=== PATIENT | male | born 1935 | race Caucasian/White ===

== ENCOUNTER 2018-07-24 10:00 | Inpatient (IN) | payer MEDICARE, OTHER ==
[2018-07-24 10:53] LABS: BASO % 0.3 % (0.0-1.0); EOS # 0.1 10^3/uL (0.0-0.50); EOS % 1.5 % (0.0-3.0); HEMATOCRIT 40.9 % (42.0-52.0); HEMOGLOBIN 13.8 g/dl (13.5-17.5); IMMATURE GRANULOCYTE % 0.3 % (0-3.0); LYMPH # 0.5 10^3/uL (1.5-4.5); LYMPH % 7.5 % (24.0-44.0); MEAN CORPUSCULAR HEMOGLOBIN 29.6 pg (27.0-33.0); MEAN CORPUSCULAR HGB CONC 33.7 g/dl (32.0-36.5); MEAN CORPUSCULAR VOLUME 87.8 fl (80.0-96.0); MONO # 0.5 10^3/uL (0.0-0.8); MONO % 7.8 % (0.0-5.0); NEUTROPHILS # 5.4 10^3/uL (1.8-7.7); NEUTROPHILS % 82.6 % (36.0-66.0); PLATELET COUNT, AUTOMATED 194 10^3/uL (150-450); RED BLOOD COUNT 4.66 10^6/uL (4.30-6.10); RED CELL DISTRIBUTION WIDTH 12.3 % (11.5-14.5); WHITE BLOOD COUNT 6.5 10^3/uL (4.0-10.0)
[2018-07-24] MEDS ORDERED: ISOVUE-370 76% 100ML VIAL (Q9967) As Ordered (11:03)
[2018-07-24 11:04] LABS: INR 1.03; PROTHROMBIN TIME 13.6 SECONDS (12.1-14.4)
[2018-07-24 11:06] LABS: ANION GAP 7 MEQ/L (8-16); BLOOD UREA NITROGEN 14 MG/DL (7-18); CALCIUM LEVEL 8.5 MG/DL (8.8-10.2); CARBON DIOXIDE LEVEL 28 MEQ/L (21-32); CHLORIDE LEVEL 105 MEQ/L (98-107); CPK CREATINE PHOSPHOKINASE 68 U/L (39-308); CREATININE FOR GFR 0.89 MG/DL (0.70-1.30); GLOMERULAR FILTRATION RATE > 60.0 (>35); GLUCOSE, FASTING 113 MG/DL (70-100); SODIUM LEVEL 140 MEQ/L (136-145); TROPONIN I < 0.02 NG/ML (< 0.10)
[2018-07-24 11:07] LABS: CK-MB VALUE MASS 1.1 NG/ML (<3.6); MB/CK RELATIVE INDEX 1.61 (< OR =4)
[2018-07-24] MEDS ORDERED: BISACODYL 5 MG TAB PO (13:00)
[2018-07-24] MEDS ORDERED: ONDANSETRON 4MG/2ML VIAL (J2405) IV (13:00)
[2018-07-24 14:22] LABS: LDH LACTATE DEHYDROGENASE 176 U/L (87-241)
[2018-07-24] MEDS: LEVOTHYROXINE 50MCG TABLET (0.05MG) PO (14:57)
[2018-07-24] MEDS: POTASSIUM CHLORIDE 10 MEQ SR TABLET PO (14:58)
[2018-07-24] MEDS: FUROSEMIDE 40 MG TAB PO (14:58)
[2018-07-24] MEDS ORDERED: METOPROLOL TART 50 MG TAB As Ordered (17:55)
[2018-07-24] MEDS ORDERED: METOPROLOL SUCC (TopROL XL) 100MG *XL* TAB As Ordered (17:57)
[2018-07-24] MEDS ORDERED: METOPROLOL TARTRATE 100 MG TAB As Ordered (17:58)
[2018-07-24] MEDS: METOPROLOL TARTRATE 100 MG TAB PO (17:59)
[2018-07-24 18:42] LABS: KETONE, URINE AUTO RFX NEGATIVE (NEGATIVE); LEUKOCYTE ESTERASE UR AUTO RFX NEGATIVE (NEGATIVE); MUCUS, URINE RFX SMALL (NEGATIVE); NITRITE, URINE AUTO RFX NEGATIVE (NEGATIVE); RBC, URINE AUTO RFX 0 /HPF (0-3); SPECIFIC GRAVITY UR AUTO RFX 1.013 (1.002-1.035); SQUAM EPITHELIAL CELL UR AURFX 0 /HPF (0-6); WBC, URINE AUTO RFX 1 /HPF (0-3)
[2018-07-24] MEDS: ARIPiprazole 2 MG TAB PO (20:00)
[2018-07-24] MEDS: TERAZOSIN 5 MG CAP PO (20:00)
[2018-07-24] MEDS: ATORVASTATIN 20 MG TAB PO (20:00)
[2018-07-25 05:10] LABS: HEMATOCRIT 36.4 % (42.0-52.0); HEMOGLOBIN 12.2 g/dl (13.5-17.5); MEAN CORPUSCULAR HEMOGLOBIN 29.1 pg (27.0-33.0); MEAN CORPUSCULAR HGB CONC 33.5 g/dl (32.0-36.5); MEAN CORPUSCULAR VOLUME 86.9 fl (80.0-96.0); PLATELET COUNT, AUTOMATED 189 10^3/uL (150-450); RED BLOOD COUNT 4.19 10^6/uL (4.30-6.10); RED CELL DISTRIBUTION WIDTH 12.1 % (11.5-14.5)
[2018-07-25 05:39] LABS: ANION GAP 5 MEQ/L (8-16); BLOOD UREA NITROGEN 14 MG/DL (7-18); CALCIUM LEVEL 8.1 MG/DL (8.8-10.2); CARBON DIOXIDE LEVEL 28 MEQ/L (21-32); CHLORIDE LEVEL 106 MEQ/L (98-107); CREATININE FOR GFR 0.74 MG/DL (0.70-1.30); GLOMERULAR FILTRATION RATE > 60.0 (>35); GLUCOSE, FASTING 100 MG/DL (70-100); SODIUM LEVEL 139 MEQ/L (136-145)
[2018-07-25] MEDS: LEVOTHYROXINE 50MCG TABLET (0.05MG) PO (06:29)
[2018-07-25] MEDS: amLODIPine 5 MG TAB PO (08:42)
[2018-07-25] MEDS: METOPROLOL TARTRATE 100 MG TAB PO ×2 (08:42→20:15)
[2018-07-25] MEDS: DUTASTERIDE 0.5 MG CAP (AVODART) PO (08:43)
[2018-07-25] MEDS: OMEPRAZOLE 20 MG CAP PO (08:43)
[2018-07-25] MEDS: LISINOPRIL 40 MG TAB PO (08:43)
[2018-07-25] MEDS: FUROSEMIDE 40 MG TAB PO (08:43)
[2018-07-25] MEDS: POTASSIUM CHLORIDE 10 MEQ SR TABLET PO (08:44)
[2018-07-25 11:53] LABS: BEDSIDE GLUCOSE 127 MG/DL (83-110)
[2018-07-25] MEDS: ARIPiprazole 2 MG TAB PO (16:09)
[2018-07-25] MEDS: ATORVASTATIN 20 MG TAB PO (20:15)
[2018-07-25] MEDS: ACETAMINOPHEN TAB 650MG DOSE (2X325MG) PO (20:16)
[2018-07-25] MEDS: TERAZOSIN 5 MG CAP PO (20:18)
[2018-07-26 05:40] LABS: HEMATOCRIT 36.7 % (42.0-52.0); HEMOGLOBIN 12.3 g/dl (13.5-17.5); MEAN CORPUSCULAR HEMOGLOBIN 29.1 pg (27.0-33.0); MEAN CORPUSCULAR HGB CONC 33.5 g/dl (32.0-36.5); MEAN CORPUSCULAR VOLUME 86.8 fl (80.0-96.0); PLATELET COUNT, AUTOMATED 186 10^3/uL (150-450); RED BLOOD COUNT 4.23 10^6/uL (4.30-6.10); RED CELL DISTRIBUTION WIDTH 12.1 % (11.5-14.5); WHITE BLOOD COUNT 5.8 10^3/uL (4.0-10.0)
[2018-07-26 05:56] LABS: ANION GAP 8 MEQ/L (8-16); BLOOD UREA NITROGEN 14 MG/DL (7-18); CALCIUM LEVEL 7.9 MG/DL (8.8-10.2); CARBON DIOXIDE LEVEL 26 MEQ/L (21-32); CHLORIDE LEVEL 105 MEQ/L (98-107); CREATININE FOR GFR 0.65 MG/DL (0.70-1.30); GLOMERULAR FILTRATION RATE > 60.0 (>35); GLUCOSE, FASTING 98 MG/DL (70-100); POTASSIUM SERUM 3.5 MEQ/L (3.5-5.1); SODIUM LEVEL 139 MEQ/L (136-145)
[2018-07-26] MEDS: LEVOTHYROXINE 50MCG TABLET (0.05MG) PO (06:24)
[2018-07-26] MEDS: ARIPiprazole 2 MG TAB PO (08:30)
[2018-07-26] MEDS: DUTASTERIDE 0.5 MG CAP (AVODART) PO (08:30)
[2018-07-26] MEDS: LISINOPRIL 40 MG TAB PO (08:30)
[2018-07-26] MEDS: METOPROLOL TARTRATE 100 MG TAB PO ×2 (08:31→20:36)
[2018-07-26] MEDS: amLODIPine 5 MG TAB PO ×2 (08:31→11:54)
[2018-07-26] MEDS: FUROSEMIDE 40 MG TAB PO (08:31)
[2018-07-26] MEDS: POTASSIUM CHLORIDE 10 MEQ SR TABLET PO (08:31)
[2018-07-26 14:53] LABS: PH BODY FLUID 7.749 UNITS (NOT ESTABLISHED); SOURCE, BODY FLUID pH PLEURAL
[2018-07-26 15:20] LABS: APPEARANCE, BODY FLUID CLEAR (CLEAR); PLEURAL FL COLOR PALE YELLOW (COLORLESS); RBC BODY FLUID < 2 10^3/uL (<2); SOURCE, BODY FLUID PLEURAL; WBC BODY FLUID 753 /uL (0-10)
[2018-07-26 15:21] LABS: BF DIFF IF INDICATED? NO (NO)
[2018-07-26 15:23] LABS: AMYLASE, BODY FLUID 12 U/L (NOT ESTABLISHED); CHOLESTEROL, BODY FLUID < 50 MG/DL (NOT ESTABLISHED); LDH, BODY FLUID 90 U/L (NOT ESTABLISHED); SOURCE, BODY FLUID ALBUMIN PLEURAL; SOURCE, BODY FLUID AMYLASE PLEURAL; SOURCE, BODY FLUID CHOL PLEURAL; SOURCE, BODY FLUID GLUCOSE PLEURAL; SOURCE, BODY FLUID LDH PLEURAL; SOURCE, BODY FLUID TOT PROTEIN PLEURAL; SOURCE, BODY FLUID TRIG PLEURAL; TOTAL PROTEIN, BODY FLUID 3.5 G/DL (NOT ESTABLISHED); TRIGLYCERIDE, BODY FLUID 8 MG/DL (NOT ESTABLISHED)
[2018-07-26] MEDS: ATORVASTATIN 20 MG TAB PO (20:34)
[2018-07-26] MEDS: TERAZOSIN 5 MG CAP PO (20:35)
[2018-07-26] MEDS: ACETAMINOPHEN TAB 650MG DOSE (2X325MG) PO (20:36)
[2018-07-26] MEDS: QUEtiapine FUMARATE 25 MG TAB PO (20:36)
[2018-07-27 05:07] LABS: HEMATOCRIT 36.5 % (42.0-52.0); HEMOGLOBIN 12.4 g/dl (13.5-17.5); MEAN CORPUSCULAR HEMOGLOBIN 28.9 pg (27.0-33.0); MEAN CORPUSCULAR VOLUME 85.1 fl (80.0-96.0); PLATELET COUNT, AUTOMATED 185 10^3/uL (150-450); RED BLOOD COUNT 4.29 10^6/uL (4.30-6.10); RED CELL DISTRIBUTION WIDTH 12.2 % (11.5-14.5); WHITE BLOOD COUNT 6.1 10^3/uL (4.0-10.0)
[2018-07-27 05:22] LABS: ANION GAP 9 MEQ/L (8-16); BLOOD UREA NITROGEN 14 MG/DL (7-18); CALCIUM LEVEL 8.3 MG/DL (8.8-10.2); CARBON DIOXIDE LEVEL 26 MEQ/L (21-32); CHLORIDE LEVEL 105 MEQ/L (98-107); CREATININE FOR GFR 0.64 MG/DL (0.70-1.30); GLOMERULAR FILTRATION RATE > 60.0 (>35); GLUCOSE, FASTING 82 MG/DL (70-100); POTASSIUM SERUM 3.5 MEQ/L (3.5-5.1); SODIUM LEVEL 140 MEQ/L (136-145)
[2018-07-27] MEDS: LEVOTHYROXINE 50MCG TABLET (0.05MG) PO (06:32)
[2018-07-27] MEDS: ARIPiprazole 2 MG TAB PO (08:44)
[2018-07-27] MEDS: FUROSEMIDE 40 MG TAB PO (08:44)
[2018-07-27] MEDS: DUTASTERIDE 0.5 MG CAP (AVODART) PO (08:44)
[2018-07-27] MEDS: LISINOPRIL 40 MG TAB PO (08:45)
[2018-07-27] MEDS: amLODIPine 10 MG TAB PO (08:45)
[2018-07-27] MEDS: METOPROLOL TARTRATE 100 MG TAB PO ×2 (08:45→21:41)
[2018-07-27] MEDS: POTASSIUM CHLORIDE 10 MEQ SR TABLET PO ×2 (08:45→11:07)
[2018-07-27] MEDS: OMEPRAZOLE 20 MG CAP PO (08:45)
[2018-07-27 09:05] LABS: ALBUMIN 2.8 GM/DL (3.2-5.2); ALKALINE PHOSPHATASE 106 U/L (45-117); ALT/SGPT 25 U/L (12-78); AST/SGOT 20 U/L (7-37); BILIRUBIN,DIRECT 0.3 MG/DL (0.0-0.2); BILIRUBIN,TOTAL 0.8 MG/DL (0.2-1.0); LDH LACTATE DEHYDROGENASE 190 U/L (87-241); TOTAL PROTEIN 5.9 GM/DL (6.4-8.2)
[2018-07-27 09:45] LABS: MAGNESIUM LEVEL 2.2 MG/DL (1.8-2.4)
[2018-07-27] MEDS: DIGOXIN 0.25 MG TAB PO (11:07)
[2018-07-27] MEDS ORDERED: SLF 3 ML SYR IV (12:30)
[2018-07-27] MEDS: SLF 3 ML SYR IV ×2 (14:00→21:40)
[2018-07-27 15:15] LABS: CPK CREATINE PHOSPHOKINASE 60 U/L (39-308); TROPONIN I < 0.02 NG/ML (< 0.10)
[2018-07-27 15:16] LABS: CK-MB VALUE MASS 1.1 NG/ML (<3.6); MB/CK RELATIVE INDEX 1.83 (< OR =4)
[2018-07-27 16:26] LABS: CK-MB VALUE MASS 1.1 NG/ML (<3.6); CPK CREATINE PHOSPHOKINASE 63 U/L (39-308); MB/CK RELATIVE INDEX 1.74 (< OR =4); TROPONIN I 0.02 NG/ML (< 0.10)
[2018-07-27 16:39] LABS: ANION GAP 8 MEQ/L (8-16); BLOOD UREA NITROGEN 16 MG/DL (7-18); CALCIUM LEVEL 8.6 MG/DL (8.8-10.2); CARBON DIOXIDE LEVEL 26 MEQ/L (21-32); CHLORIDE LEVEL 105 MEQ/L (98-107); CREATININE FOR GFR 0.96 MG/DL (0.70-1.30); GLOMERULAR FILTRATION RATE > 60.0 (>35); GLUCOSE, FASTING 88 MG/DL (70-100); MAGNESIUM LEVEL 2.2 MG/DL (1.8-2.4); POTASSIUM SERUM 4.3 MEQ/L (3.5-5.1); SODIUM LEVEL 139 MEQ/L (136-145)
[2018-07-27 21:37] LABS: CPK CREATINE PHOSPHOKINASE 53 U/L (39-308); MB/CK RELATIVE INDEX 1.88 (< OR =4); TROPONIN I < 0.02 NG/ML (< 0.10)
[2018-07-27] MEDS: TERAZOSIN 5 MG CAP PO (21:40)
[2018-07-27] MEDS: ATORVASTATIN 20 MG TAB PO (21:41)
[2018-07-27] MEDS: QUEtiapine FUMARATE 25 MG TAB PO (21:41)
[2018-07-28] MEDS: SLF 3 ML SYR IV ×2 (05:41→14:42)
[2018-07-28] MEDS: LEVOTHYROXINE 50MCG TABLET (0.05MG) PO (05:41)
[2018-07-28 05:46] LABS: HEMATOCRIT 39.2 % (42.0-52.0); HEMOGLOBIN 13.2 g/dl (13.5-17.5); MEAN CORPUSCULAR HEMOGLOBIN 29.2 pg (27.0-33.0); MEAN CORPUSCULAR HGB CONC 33.7 g/dl (32.0-36.5); MEAN CORPUSCULAR VOLUME 86.7 fl (80.0-96.0); PLATELET COUNT, AUTOMATED 176 10^3/uL (150-450); RED BLOOD COUNT 4.52 10^6/uL (4.30-6.10); RED CELL DISTRIBUTION WIDTH 12.1 % (11.5-14.5); WHITE BLOOD COUNT 6.7 10^3/uL (4.0-10.0)
[2018-07-28 06:06] LABS: ANION GAP 9 MEQ/L (8-16); BLOOD UREA NITROGEN 17 MG/DL (7-18); CALCIUM LEVEL 8.7 MG/DL (8.8-10.2); CARBON DIOXIDE LEVEL 26 MEQ/L (21-32); CHLORIDE LEVEL 107 MEQ/L (98-107); CREATININE FOR GFR 0.73 MG/DL (0.70-1.30); GLOMERULAR FILTRATION RATE > 60.0 (>35); GLUCOSE, FASTING 88 MG/DL (70-100); POTASSIUM SERUM 4.1 MEQ/L (3.5-5.1); SODIUM LEVEL 142 MEQ/L (136-145)
[2018-07-28] MEDS: DUTASTERIDE 0.5 MG CAP (AVODART) PO (08:28)
[2018-07-28] MEDS: LISINOPRIL 40 MG TAB PO (08:29)
[2018-07-28] MEDS: ARIPiprazole 2 MG TAB PO (08:29)
[2018-07-28] MEDS: POTASSIUM CHLORIDE 10 MEQ SR TABLET PO (08:29)
[2018-07-28] MEDS: amLODIPine 10 MG TAB PO (08:29)
[2018-07-28] MEDS: FUROSEMIDE 40 MG TAB PO (08:30)
[2018-07-28] MEDS: METOPROLOL TARTRATE 100 MG TAB PO (08:30)
[2018-07-28] MEDS: DIGOXIN 0.25 MG TAB PO (08:30)
[2018-07-28] MEDS ORDERED: QUEtiapine FUMARATE 25 MG TAB PO (21:00)
== END 2018-07-28 19:47 | disposition short-term general hospital (02) | DRG 86 ==
LOC: M PCU 07-26 13:45 → M ED 10:00 → M ED INP 12:56 → M ICU 14:06
PROVIDERS: Hospitalist
PROC: 0W9B3ZZ Drainage of Left Pleural Cavity, Percutaneous Approach (ICD-10-PCS; principal; 2018-07-26)
DX: S06.5X0A Traumatic subdural hemorrhage without loss of consciousness, initial encounter (principal); J90 Pleural effusion, not elsewhere classified; R47.01 Aphasia; F03.90 Unspecified dementia, unspecified severity, without behavioral disturbance, psychotic disturbance, mood disturbance, and anxiety; I10 Essential (primary) hypertension; E78.5 Hyperlipidemia, unspecified; N40.0 Benign prostatic hyperplasia without lower urinary tract symptoms; E03.9 Hypothyroidism, unspecified; Y92.009 Unspecified place in unspecified non-institutional (private) residence as the place of occurrence of the external cause; R27.8 Other lack of coordination; R41.82 Altered mental status, unspecified; K21.9 Gastro-esophageal reflux disease without esophagitis; Z79.82 Long term (current) use of aspirin; Z79.899 Other long term (current) drug therapy; I48.91 Unspecified atrial fibrillation; W19.XXXA Unspecified fall, initial encounter; R41.0 Disorientation, unspecified

== ENCOUNTER 2019-08-10 05:00 | Emergency (ER) | payer MEDICARE, OTHER ==
[~2019-08-10] VITALS: Ht 175.3 cm; Wt 61.4 kg
[~2019-08-10 05:00] MED LIST: AMLO10TA5 PO; AMLO2.5T3 PO; ASPI81TA85 PO; AVOD0.5C PO; BIMA01SOL OU; DIGO0.25 PO; K-TA10TA2 PO; KLOR20TA42 PO; LASI40TA9 PO; LIPI20TA PO; LISI40TA PO; METO100T5 PO; OMEP20TA3 PO; OMEP40CA2 PO; QUET1TAB7 PO; SYNT50TA PO; TERA10CA3 PO; TYLE1TAB5 PO
[2019-08-10 06:12] VITALS: BP 166/80
--- NOTE | 2019-08-10 06:25 | REPVR ---
PROCEDURE INFORMATION: Exam: CT Chest Without Contrast Exam date and time: 08/10/2019 5:28 AM Clinical history: 84 years old, male; Injury or trauma; Fall; Initial encounter; Blunt trauma (contusions or hematomas); Additional info: Tr TECHNIQUE: Imaging protocol: Computed tomography of the chest without contrast. 3D rendering: MIP reconstructed images were created and reviewed. Radiation optimization: All CT scans at this facility use at least one of these dose optimization techniques: automated exposure control; mA and/or kV adjustment per patient size (includes targeted exams where dose is matched to clinical indication); or iterative reconstruction. COMPARISON: CT Chest without contrast 07/24/2018 11:33 AM FINDINGS: Thyroid: Stable left thyroid nodule measures 1.1 CM. Lungs: Areas of pleuroparenchymal scarring bilaterally. Linear areas of scarring or atelectasis within the left upper lobe and most prominently within the left lower lobe. Pleural space: Posterior left pleural effusion slightly larger in volume compared to the prior CT. No pneumothorax. Heart: Calcification thoracic aorta and distribution of coronary arteries. Calcification of the mitral anulus. Cardiomegaly. Mediastinum: Hiatal hernia. There is thickening of the wall of the mid to distal esophagus. Aorta: Aneurysmal dilatation of thoracic aortic arch with an ascending arch diameter 4.3 CM stable compared to 07/24/18. Lymph nodes: Unremarkable. No enlarged lymph nodes. Bones/joints: Operative sternotomy. Degenerative change of the spine. Soft tissues: Unremarkable. Gallbladder and bile ducts: Post operative cholecystectomy. Adrenals: Thinning of adrenal glands. IMPRESSION: 1. 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 2. Atherosclerotic calcification. 3. Posterior left pleural effusion small to moderate volume. 4. Linear areas of scarring or atelectasis left upper lobe and most prominently left lower lobe. 5. Wall thickening of mid to distal esophagus. 6. Stable left thyroid nodule.No follow-up is recommended. COMMENT: In patients aged 35 years and older with an incidental thyroid nodule equal to or greater than 1.[address], MRI or extrathyroidal US, further evaluation with dedicated thyroid US is recommended for patients with normal life expectancy and without comorbidities. For smaller nodules without suspicious features, no further evaluation or follow up is recommended. Electronically signed by: Eileen Ma On 08/10/2019 06:24:52 AM
--- NOTE | 2019-08-10 06:34 | REPVR ---
PROCEDURE INFORMATION: Exam: CT Head Without Contrast Exam date and time: 08/10/2019 5:28 AM Clinical history: 84 years old, male; Injury or trauma; Fall; Initial encounter; Concussion / head injury; Additional info: Tr TECHNIQUE: Imaging protocol: Computed tomography of the head without contrast. Radiation optimization: All CT scans at this facility use at least one of these dose optimization techniques: automated exposure control; mA and/or kV adjustment per patient size (includes targeted exams where dose is matched to clinical indication); or iterative reconstruction. COMPARISON: CT Head without contrast 07/28/2018 3:02 PM FINDINGS: Brain: White matter changes suggesting chronic microvascular ischemia. Interval resolution of a large component of extra axial chronic subdural hemorrhage. There may be residual extra axial attenuation change at the right parietal lobe although recurrent subdural hemorrhage could not be entirely excluded with maximum diameter on the right measuring 0.3 CM. Abnormal extra-axial hemorrhage over the left parietal lobe maximally measures 0.32 CM. Ventricles: Ventricular size accentuation likely on the basis of central volume loss. Bones/joints: Unremarkable. No acute fracture. Sinuses: Visualized sinuses are unremarkable. No fluid levels. Mastoid air cells: Visualized mastoid air cells are well aerated. Soft tissues: Right frontal scalp edema. Vasculature: Intracranial vascular calcification. Likely vessel tortuosity and ectasia. Other findings: Hemispheric volume loss. Overlapping streak artifact. IMPRESSION: 1. Significant reduction and resolution of chronic subdural hemorrhage left temporoparietal region. 2. Bilateral appearance of subdural hemorrhage bilateral parietal lobes slight increased attenuation which could reflect residua of chronic changes although with the hyperdense component could not exclude recurrent subacute subdural. The location of involvement is similar to previous. 3. Hemispheric volume loss with chronic microvascular ischemic changes of deep white matter. Electronically signed by: Eileen Ma On 08/10/2019 06:33:50 AM
--- NOTE | 2019-08-11 12:46 | ED PDOC ---
Post-Departure Follow-Up dr goldstein faxed formal report of ct head for fu Santi Manriquez MD Aug 11, 2019 12:46
== END 2019-08-10 06:13 | disposition home or self-care (01) ==
LOC: M ED 05:00
DX: S09.90XA Unspecified injury of head, initial encounter (principal); W01.198A Fall on same level from slipping, tripping and stumbling with subsequent striking against other object, initial encounter; Y92.002 Bathroom of unspecified non-institutional (private) residence as the place of occurrence of the external cause; R91.8 Other nonspecific abnormal finding of lung field; I48.91 Unspecified atrial fibrillation; I10 Essential (primary) hypertension; F03.90 Unspecified dementia, unspecified severity, without behavioral disturbance, psychotic disturbance, mood disturbance, and anxiety; K21.9 Gastro-esophageal reflux disease without esophagitis; N40.1 Benign prostatic hyperplasia with lower urinary tract symptoms; Z86.79 Personal history of other diseases of the circulatory system; Z79.899 Other long term (current) drug therapy

== ENCOUNTER 2019-08-15 17:23 | Inpatient (IN) | payer MEDICARE, OTHER ==
[~2019-08-15] VITALS: Ht 175.3 cm; Wt 59.5 kg
[~2019-08-15 17:23] MED LIST changes: +OMEP-356 PO; -OMEP20TA3 PO; -OMEP40CA2 PO; +OMEP40CA97 PO
[2019-08-15] MEDS ORDERED: OMEP-218 (17:35)
[2019-08-15] MEDS ORDERED: LISI-1046 (17:35)
[2019-08-15 18:14] LABS: BASO % 0.4 % (0.0-1.0); EOS # 0.2 10^3/uL (0.0-0.5); EOS % 2.1 % (0.0-3.0); HEMATOCRIT 42.6 % (42.0-52.0); HEMOGLOBIN 14.3 g/dl (13.5-17.5); LYMPH # 0.7 10^3/uL (1.5-5.0); LYMPH % 8.4 % (24.0-44.0); MEAN CORPUSCULAR HEMOGLOBIN 29.9 pg (27.0-33.0); MEAN CORPUSCULAR HGB CONC 33.6 g/dl (32.0-36.5); MEAN CORPUSCULAR VOLUME 88.9 fl (80.0-96.0); MONO # 0.8 10^3/uL (0.0-0.8); MONO % 9.3 % (0.0-5.0); NEUTROPHILS # 6.8 10^3/uL (1.5-8.5); NEUTROPHILS % 79.3 % (36.0-66.0); PLATELET COUNT, AUTOMATED 205 10^3/uL (150-450); RED BLOOD COUNT 4.79 10^6/uL (4.30-6.10); WHITE BLOOD COUNT 8.5 10^3/uL (4.0-10.0)
[2019-08-15 18:47] LABS: ALT/SGPT 25 U/L (12-78); BILIRUBIN,DIRECT 0.4 MG/DL (0.0-0.2); BILIRUBIN,TOTAL 1.2 MG/DL (0.2-1.0); BLOOD UREA NITROGEN 17 MG/DL (7-18); CALCIUM LEVEL 8.3 MG/DL (8.8-10.2); CARBON DIOXIDE LEVEL 29 MEQ/L (21-32); CHLORIDE LEVEL 99 MEQ/L (98-107); CK-MB VALUE MASS < 1.0 NG/ML (<3.6); CPK CREATINE PHOSPHOKINASE 40 U/L (39-308); CREATININE FOR GFR 0.88 MG/DL (0.70-1.30); GLOMERULAR FILTRATION RATE > 60.0 (>35); GLUCOSE, FASTING 111 MG/DL (70-100); POTASSIUM SERUM 3.6 MEQ/L (3.5-5.1); SODIUM LEVEL 136 MEQ/L (136-145); TOTAL PROTEIN 6.1 GM/DL (6.4-8.2); TROPONIN I < 0.02 NG/ML (< 0.10)
[2019-08-15] MEDS ORDERED: METOPROLOL TARTRATE 100 MG TAB PO ONE (20:00)
[2019-08-15] MEDS ORDERED: ISOVUE-370 76% 100ML VIAL (Q9967) As Ordered ONE (20:01)
--- NOTE | 2019-08-15 22:10 | REPVR ---
PROCEDURE INFORMATION: Exam: CT Head Without Contrast Exam date and time: 08/15/2019 8:48 PM Clinical history: 84 years old, male; Injury or trauma; Fall; Follow-up exam; Blunt trauma (contusions or hematomas); Injury date: 08/10/19 TECHNIQUE: Imaging protocol: Computed tomography of the head without contrast. Radiation optimization: All CT scans at this facility use at least one of these dose optimization techniques: automated exposure control; mA and/or kV adjustment per patient size (includes targeted exams where dose is matched to clinical indication); or iterative reconstruction. COMPARISON: CT Head without contrast 08/10/2019 5:38 AM FINDINGS: Brain: There is no evidence of intracranial bleed. There are patchy areas of low density in the periventricular white matter consistent with chronic ischemic changes. Sinuses: Clear paranasal sinuses. Mastoid air cells: Clear mastoid air cells. Soft tissues: Unremarkable. Vasculature: There is vertebral artery calcification consistent with atherosclerotic changes. Other findings: There is no evidence of hematoma. IMPRESSION: 1. No evidence of bleed. 2. No evidence of fracture. 3. Chronic ischemic changes. 4. Prominence of the ventricles and cerebral sulci which could be secondary to moderate atrophy or communicating type hydrocephalus. There's been an increase in size of ventricles since the 2018 exam. Electronically signed by: Lg Hidalgo On 08/15/2019 22:09:55 PM
--- NOTE | 2019-08-15 22:15 | REPVR ---
PROCEDURE INFORMATION: Exam: CT Cervical Spine Without Contrast Exam date and time: 08/15/2019 8:48 PM Clinical history: 84 years old, male; Injury or trauma; Fall; Follow-up exam; Blunt trauma; Injury date: 08/10/19 TECHNIQUE: Imaging protocol: Computed tomography images of the cervical spine without contrast. Radiation optimization: All CT scans at this facility use at least one of these dose optimization techniques: automated exposure control; mA and/or kV adjustment per patient size (includes targeted exams where dose is matched to clinical indication); or iterative reconstruction. COMPARISON: No relevant prior studies available. FINDINGS: Vertebrae: There is no evidence of fracture or area The dens appears intact and the lateral masses of C1 appear symmetric. The cervical vertebra and facet joints appear in alignment. Discs/Spinal canal/Neural foramina: No spinal stenosis. No neural foraminal narrowing. Soft tissues: There is no evidence of soft tissue swelling. Lungs: Lung apices are normal. IMPRESSION: 1. There is sclerosis and facet hypertrophy bilaterally. 2. No evidence of fracture. Electronically signed by: Lg Hidalgo On 08/15/2019 22:15:23 PM
--- NOTE | 2019-08-15 22:29 | REPVR ---
PROCEDURE INFORMATION: Exam: CT Abdomen and Pelvis With Contrast Exam date and time: 08/15/2019 8:48 PM Clinical history: 84 years old, male; Injury or trauma; Fall; Follow-up exam; Blunt; Generalized TECHNIQUE: Imaging protocol: Computed tomography of the abdomen and pelvis with intravenous contrast. Radiation optimization: All CT scans at this facility use at least one of these dose optimization techniques: automated exposure control; mA and/or kV adjustment per patient size (includes targeted exams where dose is matched to clinical indication); or iterative reconstruction. Contrast material: ISOVUE 370; Contrast volume: 100 ml; Contrast route: 100; COMPARISON: No relevant prior studies available. FINDINGS: Mediastinum: Moderate hiatal hernia. Liver: Small low attenuation area measuring 11.3 mm in the right inferior lobe of the liver with Hounsfield unit density of 15 likely cyst. Trace fluid adjacent to the inferior margin of the liver. No obvious liver contusions are seen. Gallbladder and bile ducts: Normal. No calcified stones. No ductal dilation. Pancreas: Normal. No ductal dilation. Spleen: Normal. No splenomegaly. Adrenals: Normal. No mass. Kidneys and ureters: Normal. No hydronephrosis. Stomach and bowel: There is mild fluid surrounding the first part of the duodenum of uncertain etiology may represent duodenitis versus duodenal contusion, followup as clinically indicated. No bowel dilatation or obstruction. Appendix: No evidence of appendicitis. Intraperitoneal space: Unremarkable. No free air. No significant fluid collection. Vasculature: Atherosclerosis. Lymph nodes: Unremarkable. No enlarged lymph nodes. Bladder: Nondistended. Reproductive: Enlarged prostate measuring 7.0 x 6.7 cm causing mass effect on the base of the bladder. Bones/joints: Acute compression fracture of L4 with 40% loss of height and 3 mm retropulsion of superior endplate causing moderate central spinal canal stenosis. Mild compression fracture of superior endplate of L1 and L3 without any retropulsion. Diffuse demineralization of the bones with degenerative changes. Soft tissues: Mild prevertebral soft tissue swelling adjacent to the fractures. No large hematoma formation. IMPRESSION: Trace fluid adjacent to the inferior margin of the liver. No obvious liver contusions are seen. Mild fluid surrounding the first part of the duodenum of uncertain etiology may represent duodenitis versus duodenal contusion, followup as clinically indicated. Acute compression fracture of L4 with 40% loss of height and 3 mm retropulsion of superior endplate causing moderate central spinal canal stenosis. Mild compression fracture of superior endplate of L1 and L3 without any retropulsion. Prostate is enlarged measuring up to 7.0 x 6.7 cm causing mass effect on the bladder base. Electronically signed by: Yaritza Weldon On 08/15/2019 22:28:46 PM
--- NOTE | 2019-08-15 22:35 | REPVR ---
PROCEDURE INFORMATION: Exam: CT Chest With Contrast Exam date and time: 08/15/2019 8:48 PM Clinical history: 84 years old, male; Injury or trauma; Fall; Follow-up exam; Blunt trauma (contusions or hematomas) TECHNIQUE: Imaging protocol: Computed tomography of the chest with intravenous contrast. Radiation optimization: All CT scans at this facility use at least one of these dose optimization techniques: automated exposure control; mA and/or kV adjustment per patient size (includes targeted exams where dose is matched to clinical indication); or iterative reconstruction. Contrast material: ISOVUE 370; Contrast volume: 100 ml; Contrast route: IV; COMPARISON: CT Chest without contrast 08/10/2019 5:42 AM FINDINGS: Thyroid: Stable small bilateral thyroid nodules. Lungs: Bibasilar atelectasis and areas of linear scarring versus atelectasis in the left lower lobe Pleural space: Small to moderate left pleural effusion, unchanged. Small right pleural effusion, new from prior study. Heart: Coronary calcifications. Mediastinum: Moderate hiatal hernia. Aorta: Ascending thoracic aorta measuring 3.6 x 3.9 cm, stable. Lymph nodes: Few borderline enlarged mediastinal lymph nodes measuring up to 11.8 mm. Bones/joints: Status post sternotomy. Diffuse demineralization of the bones with degenerative changes. Soft tissues: Unremarkable. Other findings: Atherosclerosis. Findings are not significantly changed from prior study. IMPRESSION: Small pleural effusion with right base atelectasis. Small to moderate left pleural effusion with areas of atelectasis and scarring in left lower lobe and upper lobe, not significantly changed from prior study. No acute findings. COMMENT: In patients aged 35 years and older with an incidental thyroid nodule equal to or greater than 1.[address], MRI or extrathyroidal US, further evaluation with dedicated thyroid US is recommended for patients with normal life expectancy and without comorbidities. For smaller nodules without suspicious features, no further evaluation or follow up is recommended. Electronically signed by: Yaritza Weldon On 08/15/2019 22:35:29 PM
[2019-08-15] MEDS ORDERED: ACET25TA12 PO (23:20)
[2019-08-15] MEDS ORDERED: LISI-1046 PO (23:20)
[2019-08-15] MEDS ORDERED: ACET-897 PO (23:21)
--- NOTE | 2019-08-15 23:21 | HPEPDOC ---
[facility] Medical History & Physical Date of Admission Aug 15, 2019 Date of Service: Aug 15, 2019 Primary Care Physician: A Other Provider PCP Avery Pierre Attending Physician: MONSTER LAND MD History and Physical TIME OF SERVICE: 11:59 PM CHIEF COMPLAINT: weakness HISTORY OF PRESENT ILLNESS: This is an 84 yr old M is a poor historian; per d/w the ED provider his PCP sent him for evaluation of weakness, difficulties walking, and right hip pain. 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 Today repeat imaging studies were remarkable for L1, L3, L4 compression fx w mild canal stenosis. The ED provided talked with Ortho software quality automation engineer who recommended admission for pain management. REVIEW OF SYSTEMS: unable to obtain bc patient has dementia PAST MEDICAL/ SURGICAL HISTORY: A fib Chronic HTN / Grade 1 Chronic Diastolic CHF Dyslipidemia Chronic subdural hematoma Dementia Hypothyroidism. BPH GERD Dyslipidemia SOCIAL HISTORY: Per chart review, patient was a smoker FAMILY HISTORY: Unable to obtain because patient has dementia ALLERGIES: Please see below. HOME MEDICATIONS: Please see below. PHYSICAL EXAMINATION: VITAL SIGNS: Please see below. GENERAL APPEARANCE: Slim built, well-developed, not in apparent distress, does not appear toxic HEENT: Normocephalic, atraumatic, mucous members moist and pink CARDIOVASCULAR: Artery irregularly irregular. Unable to appreciate murmurs, rubs or gallops; well-perfused LUNGS: No use of accessory muscles, lips acyanotic. Lungs clear to auscultation bilaterally on room air ABDOMEN: Soft and nontender on palpation MUSCULOSKELETAL: Range of motion intact in all 4 extremities NEUROLOGICAL: Cranial nerves II-12 are grossly intact, speech is not dysarthric PSYCHIATRIC: Alert, oriented to person, not oriented to place or time, content of speech is not consistent with conversation LABORATORY DATA: See below. IMAGING: CT of the head. "IMPRESSION: 1. No evidence of bleed. 2. No evidence of fracture. 3. Chronic ischemic changes. 4. Prominence of the ventricles and cerebral sulci which could be secondary to moderate atrophy or communicating type hydrocephalus. There's been an increase in size of ventricles since the 2018 exam. " CT of the chest "IMPRESSION: Small pleural effusion with right base atelectasis. Small to moderate left pleural effusion with areas of atelectasis and scarring in left lower lobe and upper lobe, not significantly changed from prior study. No acute findings." CT of the cervical spine "IMPRESSION: 1. There is sclerosis and facet hypertrophy bilaterally. 2. No evidence of fracture." CT of the abdomen and pelvis "IMPRESSION: Trace fluid adjacent to the inferior margin of the liver. No obvious liver contusions are seen. Mild fluid surrounding the first part of the duodenum of uncertain etiology may represent duodenitis versus duodenal contusion, followup as clinically indic ated. Acute compression fracture of L4 with 40% loss of height and 3 mm retropulsion of superior endplate causing moderate central spinal canal stenosis. Mild compression fracture of superior endplate of L1 and L3 without any retropulsion. Prostate is enlarged measuring up to 7.0 x 6.7 cm causing mass effect on the bladder base." MICROBIOLOGY: Please see below. ASSESSMENT: Mr. Savage is an 84-year-old male with a past medical history of A. fib, chronic hypertension, dyslipidemia, chronic subdural hematoma, dementia, hypothyroidism, BPH, GERD, and dyslipidemia will be admitted for management of A. fib with RVR, and evaluation of falls resulting vertebral fractures. PLAN: 1.A fib w RVR Heart rate ranged from 110s to 140s while in the emergency department. EKG showed A. fib with RVR with a heart rate of about 85 Troponin and potassium within normal limits Cause of RVR unclear at this time Echo Jul 2018 showed" normal left ventricle (LV) size with mild left bernard tricular hypertrophy (LVH)...grade 1 diastolic dysfunction...Aortic sclerosis with trace insufficiency and trivial stenosis...Mild mitral and tricuspid insufficiency...normal pulmonary artery pressure. CHADS VASC Score to determine risk of stroke = 4 points I'm suspect that the patient is not on AC bc of the subdural hematoma; his not able to provide a good hx bc of dementia Plan: admit to ICU / telemetry / rate rhythm control w cardizem drip/ the day time team may consult Neurosurgery to determine if it is safe to start a NOAC such as apixaban since his subdural hematoma is stable in size during the day / f/u BNP, serial Trops, TSH, / will encourage d-dimer is it'll likely be elevated in the setting of an acute fracture /outpatient sleep study 2. Fall 2/2 Weakness resulting on Vertebral fractures CT of the head and cervical spine if any acute process Plan: frequent neuro checks/fall precautions/physical therapy consult to determine if he needs inpatient rehabilitation versus placement in an assisted living facility / day time to team to talk w Dr.Beard Martini prior to PT eval / Acetaminophen and Tramadol 3. Osteoporosis By definition pt has osteoporosis bc of vertebral fx Plan: can f/u w PCP for out pt work up including DEXA (if T score less than -3 will Forteo),to determine if he should receive bisphosphinate or Denosumab/ we will check his TSH, serum 25-OH Vitamin D, Urine calcium 4. Abnormal UA. Patient does not endorse abdominal pain, it is not tender on palpation of abdomen. Plan: Will not treat asymptomatic UTI 5. Chronic HTN/ Grade 1 Chronic Diastolic CHF Plan: c/w home meds 6. Dyslipidemia Plan: c/w home meds 7. Hypothyroidism. Plan: c/w home meds DVT Px w SCDs for now bc of subdural hematoma CC time 35min Vital Signs Vital Signs Date Time Temp Pulse Resp B/P (MAP) Pulse Ox O2 Delivery O2 Flow Rate FiO2 08/15/19 21:52 97 15 160/81 (107) 97 08/15/19 17:24 97.8 Room Air Laboratory Data Labs 24H Laboratory Tests 2 08/15/19 17:57: Immature Granulocyte % (Auto) 0.5, White Blood Count 8.5, Red Blood Count 4.79, Hemoglobin 14.3, Hematocrit 42.6, Mean Corpuscular Volume 88.9, Mean Corpuscular Hemoglobin 29.9, Mean Corpuscular Hemoglobin Concent 33.6, Red Cell Distribution Width 12.0, Platelet Count 205, Neutrophils (%) (Auto) 79.3H, Lymphocytes (%) (Auto) 8.4L, Monocytes (%) (Auto) 9.3H, Eosinophils (%) (Auto) 2.1, Basophils ( %) (Auto) 0.4, Neutrophils # (Auto) 6.8, Lymphocytes # (Auto) 0.7L, Monocytes # (Auto) 0.8, Eosinophils # (Auto) 0.2, Basophils # (Auto) 0.0, Nucleated Red Blood Cells % (auto) 0.0, Urine Color YELLOW, Urine Appearance CLEAR, Urine pH 6.0, Urine Specific [place] 1.017, Urine Protein NEGATIVE, Urine Glucose (UA) NEGATIVE, Urine Ketones NEGATIVE, Urine Blood NEGATIVE, Urine Nitrite NEGATIVE, Urine Bilirubin NEGATIVE, Urine Urobilinogen 4.0H, Urine Leukocyte Esterase 1+H, Urine WBC (Auto) 8H, Urine RBC (Auto) 1, Urine Hyaline Casts (Auto) 0, Urine Bacteria (Auto) NEGATIVE, Urine Squamous Epithelial Cells 0, Urine Mucus (Auto) SMALL, Urine Sperm (Auto) , Anion Gap 8, Glomerular Filtration Rate > 60.0, Calcium Level 8.3L, Aspartate Amino Transf (AST/SGOT) 22, Alanine Aminotransferase (ALT/SGPT) 25, Alkaline Phosphatase 95, Total Bilirubin 1.2H, Direct Bilirubin 0.4H, Total Creatine Kinase 40, Creatine Kinase MB < 1.0, Creatine Kinase MB Relative Index 2.50, Troponin I < 0.02, Total Protein 6.1L, Albumin 3.0L, Albumin/Globulin Ratio 0.97L, Thyroid Stimulating Hormone (TSH) 2.900 CBC/BMP Laboratory Tests 08/15/19 17:57 Red Blood Count 4.79, Mean Corpuscular Volume 88.9, Mean Corpuscular Hemoglobin 29.9, Mean Corpuscular Hemoglobin Concent 33.6, Red Cell Distribution Width 12.0, Neutrophils (%) (Auto) 79.3 H, Lymphocytes (%) (Auto) 8.4 L, Monocytes (%) (Auto) 9.3 H, Eosinophils (%) (Auto) 2.1, Basophils (%) (Auto) 0.4, Neutrophils # (Auto) 6.8, Lymphocytes # (Auto) 0.7 L, Monocytes # (Auto) 0.8, Eosinophils # (Auto) 0.2, Basophils # (Auto) 0.0 Microbiology Microbiology 08/15/19 Urine Culture, Received Pending Home Medications Scheduled Acetaminophen/Diphenhydramine (Acetaminophen Pm Caplet) 1 Each Tablet, 1 TAB PO QHS Atorvastatin Calcium (Lipitor) 20 Mg Tab, 20 MG PO QHS Bimatoprost (Lumigan) 50 Drop/2.5 Ml Jasmina, 1 DROP OU QHS Dutasteride (Avodart) 0.5 Mg Cap, 0.5 MG PO DAILY Furosemide (Lasix) 40 Mg Tab, 40 MG PO DAILY Levothyroxine Sodium (Synthroid) 50 Mcg Tab, 50 MCG PO DAILY Lisinopril (Lisinopril) 2.5 Mg Tablet, 2.5 MG PO DAILY Metoprolol Tartrate (Metoprolol Tartrate) 100 Mg Tab, 100 MG PO BID Scheduled PRN Acetaminophen (Tylenol Extra Strength) 500 Mg Tablet, 1,000 MG PO Q8H PRN for PAIN Allergies Coded Allergies: No Known Allergies (Unverified , 07/24/18) A-FIB/CHADSVASC A-FIB History Current/History of A-Fib/PAF?: Yes Current PO Anticoag Therapy: No Age/Risk Factor Scoring CHADSVASC: CHADSVASC Response (Comments) Value Age Risk Factor Age >/= 75 years old 2 Gender Risk Factor Male 0 Hx of CHF Yes 1 Hx of HTN Yes 1 Hx of Stroke/TIA/or VTE No 0 Hx of Diabetes No 0 Hx of Vascular Disease No 0 Total 4 Treatment Treatment ordered: Holding Other Other reason anticoagulant not: pt has subdural hematoma MONSTER LAND MD Aug 15, 2019 23:21
[2019-08-16] VITALS (8 sets, daily range): BP systolic 105–168; BP diastolic 63–98
[2019-08-16] MEDS ORDERED: ACETAMINOPHEN 650MG ER TAB (TYLENOL ARTHRITIS) As Ordered ONE (01:41)
[2019-08-16] MEDS: ACETAMINOPHEN 650MG ER TAB (TYLENOL ARTHRITIS) PO PRN ×3 (01:42→20:06)
[2019-08-16] MEDS ORDERED: diltiaZEM 125 MG in NS 100 ML IV SCH (05:00)
[2019-08-16 05:29] LABS: HEMATOCRIT 33.2 % (42.0-52.0); MEAN CORPUSCULAR HEMOGLOBIN 29.7 pg (27.0-33.0); MEAN CORPUSCULAR HGB CONC 34.6 g/dl (32.0-36.5); MEAN CORPUSCULAR VOLUME 85.8 fl (80.0-96.0); PLATELET COUNT, AUTOMATED 199 10^3/uL (150-450); RED BLOOD COUNT 3.87 10^6/uL (4.30-6.10); WHITE BLOOD COUNT 5.8 10^3/uL (4.0-10.0)
[2019-08-16 05:40] LABS: HEMOGLOBIN 11.5 g/dl (13.5-17.5)
[2019-08-16] MEDS: LEVOTHYROXINE 50MCG TABLET (0.05MG) PO SCH (06:05)
--- NOTE | 2019-08-16 08:01 | REP ---
AP pelvis single view: Studies compared to the abdomen/pelvis CT dated 08/15/2019. No pelvic fractures are identified. The prostate is enlarged and effaces the bladder base. There is compression deformity of the L4 vertebral body. There is joint space narrowing of the hips bilaterally. On the comparison CT there are bone islands in the anterior posterior stress of the left acetabulum, anterior strut of the right acetabulum and in the right iliac wing. Impression: No pelvic fracture. L4 compression fracture. Electronically Signed by Reginald Whiting MD 08/16/2019 07:52 A
[2019-08-16 08:08] LABS: BLOOD UREA NITROGEN 14 MG/DL (7-18); CALCIUM LEVEL 7.9 MG/DL (8.8-10.2); CARBON DIOXIDE LEVEL 27 MEQ/L (21-32); CHLORIDE LEVEL 103 MEQ/L (98-107); CREATININE FOR GFR 0.68 MG/DL (0.70-1.30); GLOMERULAR FILTRATION RATE > 60.0 (>35); GLUCOSE, FASTING 100 MG/DL (70-100); NT-PRO BNP 9891 PG/ML (<450); POTASSIUM SERUM 3.3 MEQ/L (3.5-5.1); SODIUM LEVEL 137 MEQ/L (136-145); TROPONIN I < 0.02 NG/ML (< 0.10)
[2019-08-16] MEDS ORDERED: ENOXAPARIN 40 MG/0.4 ML SYRINGE (J1650) SC SCH (09:00)
[2019-08-16] MEDS ORDERED: APIXABAN 2.5 MG TAB (ELIQUIS) PO SCH (09:00)
[2019-08-16 09:14] LABS: TOTAL 25(OH) VITAMIN D 25.3 NG/ML (30.0-100.0)
[2019-08-16] MEDS: DUTASTERIDE 0.5 MG CAP (AVODART) PO SCH (10:32)
[2019-08-16] MEDS: METOPROLOL TARTRATE 100 MG TAB PO SCH ×2 (10:33→20:05)
[2019-08-16] MEDS: LISINOPRIL *2.5 MG* TAB PO SCH (10:33)
[2019-08-16] MEDS: FUROSEMIDE 40 MG TAB PO SCH (10:34)
[2019-08-16] MEDS ORDERED: POTASSIUM CHLORIDE 10 MEQ SR TABLET PO ONE (11:30)
--- NOTE | 2019-08-16 13:08 | IPNPDOC ---
Text Note Date of Service The patient was seen on 08/16/19. NOTE Patient was seen and examined this morning. Her daughter was present in the r oom. The patient has no complaint except for some lower back pain. PHYSICAL EXAMINATION: GENERAL APPEARANCE: Slim built, well-developed, not in apparent distress, does not appear toxic HEENT: Normocephalic, atraumatic, mucous members moist and pink CARDIOVASCULAR: Artery irregularly irregular. Unable to appreciate murmurs, rubs or gallops; well-perfused LUNGS: No use of accessory muscles, lips acyanotic. Lungs clear to auscultation bilaterally on room air ABDOMEN: Soft and nontender on palpation MUSCULOSKELETAL: Range of motion intact in all 4 extremities NEUROLOGICAL: Cranial nerves II-12 are grossly intact, speech is not dysarthric, able to wiggle his toes. Sensations intact in bilateral lower extremities. No urinary or fecal incontinence. PSYCHIATRIC: Alert, oriented to person, not oriented to place or time, content of speech is not consistent with conversation CT of the spine "IMPRESSION: There is sclerosis and facet hypertrophy bilaterally. No evidence of fracture." Acute compression fracture of L4 with 40% loss of height and 3 mm retropulsion of superior endplate causing moderate central spinal canal stenosis. Mild compression fracture of superior endplate of L1 and L3 without any retropulsion. MICROBIOLOGY: Please see below. ASSESSMENT: Mr. Savage is an 84-year-old male with a past medical history of A. fib, chronic hypertension, dyslipidemia, chronic subdural hematoma, dementia, hypothyroidism, BPH, GERD, and dyslipidemia will be admitted evaluation of falls resulting vertebral fractures. PLAN: 1.Fall 2/2 Weakness resulting on Vertebral fractures : Mainly T4 with moderate spinal stenosis. CT of the head and cervical spine shows no acute process. I had a detailed discussion with the orthopedics and as per them. They will see the patient. I have already discussed in detail with the family if they want any intervention and as per family, they wanted only conservative management. Possibly the patient will require DS LO brace. Pain control has been initiated. Fall precautions and bed rest has been started. 2. A fib: There was some concern of RVR in the ER, but the patient currently is rate controlled with A. fib. The heart is 85. The patient continues to be in 100 twice a day of metoprolol. The patient has a chart of a score of 4, but the patient is not a candidate for anti-cognition. Discussed with the family in detail regarding that. And is high risk of fall and has had recent subdural hematoma. Continue telemetry monitoring 3. Grade 1 Chronic Diastolic CHF: Continue IV Lasix and 2 g sodium diet. 4. Hypothyroidism: c/w home meds SCDs for subdural hematoma Had a detailed discussion with the daughter regarding his advised that it is and after discussion of around 20 minutes. It was decided the patient will be DNR/DNI. All the paperwork has been done. VS,Fishbone, I+O VS, Fishbone, I+O Laboratory Tests 08/15/19 17:57 Red Blood Count 4.79, Mean Corpuscular Volume 88.9, Mean Corpuscular Hemoglobin 29.9, Mean Corpuscular Hemoglobin Concent 33.6, Red Cell Distribution Width 12.0, Neutrophils (%) (Auto) 79.3 H, Lymphocytes (%) (Auto) 8.4 L, Monocytes (%) (Auto) 9.3 H, Eosinophils (%) (Auto) 2.1, Basophils (%) (Auto) 0.4, Neutrophils # (Auto) 6.8, Lymphocytes # (Auto) 0.7 L, Monocytes # (Auto) 0.8, Eosinophils # (Auto) 0.2, Basophils # (Auto) 0.0 08/16/19 05:08 Red Blood Count 3.87 L, Mean Corpuscular Volume 85.8, Mean Corpuscular Hemoglobin 29.7, Mean Corpuscular Hemoglobin Concent 34.6, Red Cell Distribution Width 12.0, Calcium Level 7.9 L Vital Signs Date Time Temp Pulse Resp B/P (MAP) Pulse Ox O2 Delivery O2 Flow Rate FiO2 08/16/19 10:33 106 132/74 08/16/19 07:29 97.2 18 96 08/15/19 17:24 Room Air I&O- Last 24 Hours up to 6 AM 08/16/19 05:59 Intake Total 60 ml Output Total 0 ml Balance 60 ml COREY ENRIQUEZ MD Aug 16, 2019 13:08
[2019-08-16] MEDS: ATORVASTATIN 20 MG TAB PO SCH (20:05)
--- NOTE | 2019-08-16 20:38 | ECGEPIP ---
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
[2019-08-17] VITALS (7 sets, daily range): BP systolic 140–157; BP diastolic 70–101
[2019-08-17 05:56] LABS: BASO % 0.4 % (0.0-1.0); EOS # 0.2 10^3/uL (0.0-0.5); EOS % 2.6 % (0.0-3.0); HEMATOCRIT 38.3 % (42.0-52.0); HEMOGLOBIN 13.1 g/dl (13.5-17.5); LYMPH # 0.5 10^3/uL (1.5-5.0); LYMPH % 7.6 % (24.0-44.0); MEAN CORPUSCULAR HEMOGLOBIN 29.4 pg (27.0-33.0); MEAN CORPUSCULAR HGB CONC 34.2 g/dl (32.0-36.5); MEAN CORPUSCULAR VOLUME 85.9 fl (80.0-96.0); MONO # 0.7 10^3/uL (0.0-0.8); MONO % 9.9 % (0.0-5.0); NEUTROPHILS # 5.5 10^3/uL (1.5-8.5); NEUTROPHILS % 78.9 % (36.0-66.0); PLATELET COUNT, AUTOMATED 235 10^3/uL (150-450); RED BLOOD COUNT 4.46 10^6/uL (4.30-6.10)
[2019-08-17] MEDS: LEVOTHYROXINE 50MCG TABLET (0.05MG) PO SCH (06:06)
[2019-08-17 06:19] LABS: BLOOD UREA NITROGEN 14 MG/DL (7-18); CALCIUM LEVEL 8.2 MG/DL (8.8-10.2); CARBON DIOXIDE LEVEL 29 MEQ/L (21-32); CHLORIDE LEVEL 104 MEQ/L (98-107); CREATININE FOR GFR 0.72 MG/DL (0.70-1.30); GLOMERULAR FILTRATION RATE > 60.0 (>35); GLUCOSE, FASTING 99 MG/DL (70-100); POTASSIUM SERUM 3.5 MEQ/L (3.5-5.1); SODIUM LEVEL 138 MEQ/L (136-145)
[2019-08-17] MEDS: LISINOPRIL *2.5 MG* TAB PO SCH (08:45)
[2019-08-17] MEDS: FUROSEMIDE 40 MG TAB PO SCH (08:48)
[2019-08-17] MEDS: DUTASTERIDE 0.5 MG CAP (AVODART) PO SCH (08:48)
[2019-08-17] MEDS: ACETAMINOPHEN 650MG ER TAB (TYLENOL ARTHRITIS) PO PRN ×2 (08:49→23:13)
[2019-08-17] MEDS: METOPROLOL TARTRATE 100 MG TAB PO SCH ×2 (08:49→20:08)
--- NOTE | 2019-08-17 12:52 | IPNPDOC ---
Text Note Date of Service The patient was seen on 08/17/19. NOTE Patient was seen and examined this morning. No family member present in the room today. The patient has no complaint except for some lower back pain. PHYSICAL EXAMINATION: GENERAL APPEARANCE: Slim built, well-developed, not in apparent distress, does not appear toxic HEENT: Normocephalic, atraumatic, mucous members moist and pink CARDIOVASCULAR: Artery irregularly irregular. Unable to appreciate murmurs, rubs or gallops; well-perfused LUNGS: No use of accessory muscles, lips acyanotic. Lungs clear to auscultation bilaterally on room air ABDOMEN: Soft and nontender on palpation MUSCULOSKELETAL: Range of motion intact in all 4 extremities NEUROLOGICAL: Cranial nerves II-12 are grossly intact, speech is not dysarthric, able to wiggle his toes. Sensations intact in bilateral lower extremities. No urinary or fecal incontinence. PSYCHIATRIC: Alert, oriented to person, not oriented to place or time, content of speech is not consistent with conversation CT of the spine "IMPRESSION: There is sclerosis and facet hypertrophy bilaterally. No evidence of fracture." Acute compression fracture of L4 with 40% loss of height and 3 mm retropulsion of superior endplate causing moderate central spinal canal stenosis. Mild compression fracture of superior endplate of L1 and L3 without any retropulsion. MICROBIOLOGY: Please see below. ASSESSMENT: Mr. Savage is an 84-year-old male with a past medical history of A. fib, chronic hypertension, dyslipidemia, chronic subdural hematoma, dementia, hypothyroidism, BPH, GERD, and dyslipidemia will be admitted evaluation of falls resulting vertebral fractures. CAT scan showed acute compression fracture of L4 with a mild to moderate spinal canal stenosis. The family wants only conservative management. Orthopedics has been consulted for their sedation. Patient probably will require LO brace and possible placement/home with home health. The patient is DNR/DNI PLAN: 1.Fall 2/2 Weakness resulting on Vertebral fractures : Mainly T4 with moderate spinal stenosis. CT of the head and cervical spine shows no acute process. I had a detailed discussion with the orthopedics and as per them. They will see the patient. I have already discussed in detail with the family if they want any intervention and as per family, they wanted only conservative management. Discussed the risks and benefits of that including a cord compression, penicillin they understand and they know that he will not be able to tolerate any procedure because of his advanced age and wants only conservative management. Possibly the patient will require TS LO brace and orthopedics has been consulted for that. Pain control has been initiated. Fall precautions and bed rest has been started. 2. A fib: There was some concern of RVR in the ER, but the patient currently is rate controlled with A. fib. The heart is 85. The patient continues to be in 100 twice a day of metoprolol. The patient has a chart of a score of 4, but the patient is not a candidate for anti-cognition. Discussed with the family in detail regarding that. And is high risk of fall and has had recent subdural hematoma. Continue telemetry monitoring 3. Grade 1 Chronic Diastolic CHF: Continue IV Lasix and 2 g sodium diet. 4. Hypothyroidism: c/w home meds SCDs for subdural hematoma Had a detailed discussion with the daughter regarding his advised that it is and after discussion of around 20 minutes. It was decided the patient will be DNR/DNI. All the paperwork has been done. Disposition unknown at this time as the patient required TL, S, O brace and possible placement. VS,Fishbone, I+O VS, Fishbone, I+O Laboratory Tests 08/17/19 05:42 Red Blood Count 4.46, Mean Corpuscular Volume 85.9, Mean Corpuscular Hemoglobin 29.4, Mean Corpuscular Hemoglobin Concent 34.2, Red Cell Distribution Width 12.2, Neutrophils (%) (Auto) 78.9 H, Lymphocytes (%) (Auto) 7.6 L, Monocytes (%) (Auto) 9.9 H, Eosinophils (%) (Auto) 2.6, Basophils (%) (Auto) 0.4, Neutrophils # (Auto) 5.5, Lymphocytes # (Auto) 0.5 L, Monocytes # (Auto) 0.7, Eosinophils # (Auto) 0.2, Basophils # (Auto) 0.0, Calcium Level 8.2 L Vital Signs Date Time Temp Pulse Resp B/P (MAP) Pulse Ox O2 Delivery O2 Flow Rate FiO2 08/17/19 12:10 97.8 70 18 145/80 (101) 94 08/15/19 17:24 Room Air I&O- Last 24 Hours up to 6 AM 08/17/19 06:00 Intake Total 630 ml Output Total 680 ml Balance -50 ml COREY ENRIQUEZ MD Aug 17, 2019 12:52
--- NOTE | 2019-08-17 14:28 | CR ---
DATE OF CONSULTATION: 08/17/2019 CHIEF COMPLAINT: Low back pain. Due to patient's condition, part of the history was obtained by his . This is an 84-year-old male who is a poor historian. Per the , he had a slip and fall at home last somewhere between 10:00 p.m. and 3:00 a.m. in the morning in their bedroom. He does not recall how or why this happened. He is being evaluated for weakness, difficulty walking and was admitted for evaluation. He is unable to take care of himself. He denies any pain or aches elsewhere. He denies any bowel or bladder incontinence. Just back pain, numbness and tingling. The pain is made worse with moving, alleviated with rest. The pain is an aching pain with intermittent sharpness and is 8/10. REVIEW OF SYSTEMS: Unable to obtain a full 10-point system review due to the patient's mental state. PAST MEDICAL HISTORY: Atrial fibrillation. Chronic hypertension. Grade 1 diastolic heart failure. Dyslipidemia. Subdural hematoma. Dementia. Hypothyroidism. Benign prostatic hypertrophy (BPH). Gastroesophageal reflux disease (GERD). Dyslipidemia. SOCIAL HISTORY: Patient was a smoker, lived at home with his . However, they are unable to continue caring for him. HOME MEDICATIONS: - Lipitor - Lumigan - Avodart - Lasix - Synthroid - lisinopril - metoprolol ALLERGIES: No known drug allergies. PAST SURGICAL HISTORY: No known past surgical history. PHYSICAL EXAMINATION: Patient is awake and alert, appropriate affect. Breathing unlabored in room air. Bilateral upper extremities: No tenderness to palpation. Broad full range of motion of the shoulders, elbow, hands without any pain. Skin is intact. No swelling of the upper muscles. Radial pulse 2+, regular rate. Positive anterior intraosseous (AIN) and posterior intraosseous nerve (PIN) and ulnar motor nerve functions. Sensation intact to light touch to superficial sensory branches of the radial nerve, median nerve, and ulnar nerve and axillary. radial nerve. Bilateral lower extremities: No tenderness to palpation. Full range of motion of the hips, knees and ankles without any pain. Positive extensor hallucis longus (EHL) and flexor hallucis longus (FHL) gastrocs, quad and hamstring motor function. Sensation intact to light touch and superficial peroneal, deep peroneal, sural, saphenous, and tibial distributions. Posterior tibial pulses 2+ regular rate. Skin is intact. No swelling or ecchymosis. Spine: He has mid back pain, tender to palpation, low lying. Negative clonus and Girard's. L2 to S1 motor intact along with sensation to light touch. IMAGING REVIEWED: CT of the cervical spine, chest, and lumbar spine demonstrates L1, L3 and L4 compression fractures that are stable. This is a pleasantly demented 84-year-old who has suffered L1, L3, L4 compression fractures. I discussed with both the patient and his family that this will likely heal uneventfully without surgical intervention. For pain control, we will prescribed him a thoracic lumbar sacral orthosis (TLSO) brace. This is for comfort only. If he finds it more uncomfortable to wear the brace, he does not need it. He may get out of bed and ambulate as tolerated. Otherwise, no present need for orthopaedic surgery intervention. He can followup in our office with one of our nurse practitioners within the next 2-3 weeks once he is discharged. Patient and their family expressed understanding and in agreement at this plan.
[2019-08-17] MEDS: ATORVASTATIN 20 MG TAB PO SCH (20:08)
[2019-08-18 02:00] VITALS: BP 129/77
[2019-08-18 06:00] VITALS: BP 127/60
[2019-08-18] MEDS: LEVOTHYROXINE 50MCG TABLET (0.05MG) PO SCH (06:03)
[2019-08-18 06:38] LABS: BASO % 0.3 % (0.0-1.0); EOS # 0.2 10^3/uL (0.0-0.5); EOS % 2.5 % (0.0-3.0); HEMOGLOBIN 13.3 g/dl (13.5-17.5); LYMPH # 0.6 10^3/uL (1.5-5.0); LYMPH % 9.7 % (24.0-44.0); MEAN CORPUSCULAR HGB CONC 34.1 g/dl (32.0-36.5); MONO # 0.6 10^3/uL (0.0-0.8); MONO % 9.8 % (0.0-5.0); NEUTROPHILS % 77.1 % (36.0-66.0); PLATELET COUNT, AUTOMATED 249 10^3/uL (150-450); RED BLOOD COUNT 4.43 10^6/uL (4.30-6.10); WHITE BLOOD COUNT 6.5 10^3/uL (4.0-10.0)
[2019-08-18 07:05] LABS: BLOOD UREA NITROGEN 15 MG/DL (7-18); CALCIUM LEVEL 7.9 MG/DL (8.8-10.2); CARBON DIOXIDE LEVEL 28 MEQ/L (21-32); CHLORIDE LEVEL 102 MEQ/L (98-107); CREATININE FOR GFR 0.73 MG/DL (0.70-1.30); GLOMERULAR FILTRATION RATE > 60.0 (>35); GLUCOSE, FASTING 90 MG/DL (70-100); POTASSIUM SERUM 3.3 MEQ/L (3.5-5.1); SODIUM LEVEL 138 MEQ/L (136-145)
[2019-08-18] MEDS: LISINOPRIL *2.5 MG* TAB PO SCH (08:48)
[2019-08-18] MEDS: METOPROLOL TARTRATE 100 MG TAB PO SCH ×2 (08:49→20:01)
[2019-08-18] MEDS: DUTASTERIDE 0.5 MG CAP (AVODART) PO SCH (08:49)
[2019-08-18] MEDS: FUROSEMIDE 40 MG TAB PO SCH (08:49)
[2019-08-18 10:00] VITALS: BP 117/68
--- NOTE | 2019-08-18 12:09 | IPNPDOC ---
Text Note Date of Service The patient was seen on 08/18/19. NOTE Patient was seen and examined this morning. No family member present in the room today. The patient has no complaint except for some lower back pain. PHYSICAL EXAMINATION: GENERAL APPEARANCE: Slim built, well-developed, not in apparent distress, does not appear toxic HEENT: Normocephalic, atraumatic, mucous members moist and pink CARDIOVASCULAR: Artery irregularly irregular. Unable to appreciate murmurs, rubs or gallops; well-perfused LUNGS: No use of accessory muscles, lips acyanotic. Lungs clear to auscultation bilaterally on room air ABDOMEN: Soft and nontender on palpation MUSCULOSKELETAL: Range of motion intact in all 4 extremities NEUROLOGICAL: Cranial nerves II-12 are grossly intact, speech is not dysarthric, able to wiggle his toes. Sensations intact in bilateral lower extremities. No urinary or fecal incontinence. PSYCHIATRIC: Alert, oriented to person, not oriented to place or time, content of speech is not consistent with conversation CT of the spine "IMPRESSION: There is sclerosis and facet hypertrophy bilaterally. No evidence of fracture." Acute compression fracture of L4 with 40% loss of height and 3 mm retropulsion of superior endplate causing moderate central spinal canal stenosis. Mild compression fracture of superior endplate of L1 and L3 without any retropulsion. MICROBIOLOGY: Please see below. ASSESSMENT: Mr. Savage is an 84-year-old male with a past medical history of A. fib, chronic hypertension, dyslipidemia, chronic subdural hematoma, dementia, hypothyroidism, BPH, GERD, and dyslipidemia will be admitted evaluation of falls resulting vertebral fractures. CAT scan showed acute compression fracture of L4 with a mild to moderate spinal canal stenosis. The family wants only conservative management. Orthopedics has been consulted for their recommendations. Patient probably will require LO brace and possible placement/home with home health. The patient is DNR/DNI PLAN: 1.Fall 2/2 Weakness resulting on Vertebral fractures : Mainly T4 with moderate spinal stenosis. CT of the head and cervical spine shows no acute process. I had a detailed discussion with the orthopedics and as per them. They will see the patient. I have already discussed in detail with the family if they want any intervention and as per family, they wanted only conservative management. Discussed the risks and benefits of that including a cord compression, penicillin they understand and they know that he will not be able to tolerate any procedure because of his advanced age and wants only conservative management. Possibly the patient will require TS LO brace and orthopedics has been consulted for that. Pain control has been initiated. Fall precautions and bed rest has been started. 2. A fib: There was some concern of RVR in the ER, but the patient currently is rate controlled with A. fib. The heart is 85. The patient continues to be in 100 twice a day of metoprolol. The patient has a chart of a score of 4, but the patient is not a candidate for anti-cognition. Discussed with the family in detail regarding that. And is high risk of fall and has had recent subdural hematoma. Continue telemetry monitoring 3. Grade 1 Chronic Diastolic CHF: Continue IV Lasix and 2 g sodium diet. 4. Hypothyroidism: c/w home meds SCDs for subdural hematoma Had a detailed discussion with the daughter regarding his advised that it is and after discussion of around 20 minutes. It was decided the patient will be DNR/DNI. All the paperwork has been done. Disposition unknown at this time as the patient required TL, S, O brace and possible placement. VS,Fishbone, I+O VS, Fishbone, I+O Laboratory Tests 08/18/19 05:24 Red Blood Count 4.43, Mean Corpuscular Volume 88.0, Mean Corpuscular Hemoglobin 30.0, Mean Corpuscular Hemoglobin Concent 34.1, Red Cell Distribution Width 12.0, Neutrophils (%) (Auto) 77.1 H, Lymphocytes (%) (Auto) 9.7 L, Monocytes (%) (Auto) 9.8 H, Eosinophils (%) (Auto) 2.5, Basophils (%) (Auto) 0.3, Neutrophils # (Auto) 5.0, Lymphocytes # (Auto) 0.6 L, Monocytes # (Auto) 0.6, Eosinophils # (Auto) 0.2, Basophils # (Auto) 0.0, Calcium Level 7.9 L Vital Signs Date Time Temp Pulse Resp B/P (MAP) Pulse Ox O2 Delivery O2 Flow Rate FiO2 08/18/19 10:00 98.7 57 17 117/68 (84) 98 08/15/19 17:24 Room Air I&O- Last 24 Hours up to 6 AM 08/18/19 06:00 Intake Total 560 ml Output Total 1175 ml Balance -615 ml COREY ENRIQUEZ MD Aug 18, 2019 12:09
[2019-08-18] MEDS ORDERED: POTASSIUM CHLORIDE 10 MEQ SR TABLET PO ONE (12:15)
[2019-08-18] MEDS: VITAMIN D 1,000 INTERNATIONAL UNITS TABLET PO SCH (12:17)
[2019-08-18 14:00] VITALS: BP 118/70
[2019-08-18 18:00] VITALS: BP 120/80
[2019-08-18] MEDS: ATORVASTATIN 20 MG TAB PO SCH (19:55)
[2019-08-18 22:00] VITALS: BP 130/80
[2019-08-19] MEDS: LEVOTHYROXINE 50MCG TABLET (0.05MG) PO SCH (05:23)
[2019-08-19 06:00] VITALS: BP 141/83
[2019-08-19 07:29] LABS: BASO % 0.5 % (0.0-1.0); EOS # 0.2 10^3/uL (0.0-0.5); EOS % 2.5 % (0.0-3.0); HEMATOCRIT 41.6 % (42.0-52.0); HEMOGLOBIN 13.9 g/dl (13.5-17.5); LYMPH # 0.6 10^3/uL (1.5-5.0); LYMPH % 8.8 % (24.0-44.0); MEAN CORPUSCULAR HGB CONC 33.4 g/dl (32.0-36.5); MEAN CORPUSCULAR VOLUME 86.8 fl (80.0-96.0); MONO # 0.8 10^3/uL (0.0-0.8); MONO % 10.6 % (0.0-5.0); NEUTROPHILS # 5.6 10^3/uL (1.5-8.5); NEUTROPHILS % 77.1 % (36.0-66.0); PLATELET COUNT, AUTOMATED 260 10^3/uL (150-450); RED BLOOD COUNT 4.79 10^6/uL (4.30-6.10); WHITE BLOOD COUNT 7.3 10^3/uL (4.0-10.0)
[2019-08-19 07:44] LABS: BLOOD UREA NITROGEN 14 MG/DL (7-18); CALCIUM LEVEL 8.5 MG/DL (8.8-10.2); CARBON DIOXIDE LEVEL 29 MEQ/L (21-32); CHLORIDE LEVEL 102 MEQ/L (98-107); CREATININE FOR GFR 0.75 MG/DL (0.70-1.30); GLOMERULAR FILTRATION RATE > 60.0 (>35); GLUCOSE, FASTING 91 MG/DL (70-100); POTASSIUM SERUM 3.7 MEQ/L (3.5-5.1); SODIUM LEVEL 136 MEQ/L (136-145)
[2019-08-19] MEDS: DUTASTERIDE 0.5 MG CAP (AVODART) PO SCH (09:27)
[2019-08-19] MEDS: VITAMIN D 1,000 INTERNATIONAL UNITS TABLET PO SCH (09:27)
[2019-08-19] MEDS: FUROSEMIDE 40 MG TAB PO SCH (09:28)
[2019-08-19] MEDS: LISINOPRIL *2.5 MG* TAB PO SCH (09:29)
[2019-08-19] MEDS: METOPROLOL TARTRATE 100 MG TAB PO SCH ×2 (09:29→19:38)
[2019-08-19 10:00] VITALS: BP 134/82
--- NOTE | 2019-08-19 13:04 | IPNPDOC ---
Text Note Date of Service The patient was seen on 08/19/19. NOTE Patient was seen and examined this morning. No family member present in the room today. The patient has no complaint except for some lower back pain. PHYSICAL EXAMINATION: GENERAL APPEARANCE: Slim built, well-developed, not in apparent distress, does not appear toxic HEENT: Normocephalic, atraumatic, mucous members moist and pink CARDIOVASCULAR: Artery irregularly irregular. Unable to appreciate murmurs, rubs or gallops; well-perfused LUNGS: No use of accessory muscles, lips acyanotic. Lungs clear to auscultation bilaterally on room air ABDOMEN: Soft and nontender on palpation MUSCULOSKELETAL: Range of motion intact in all 4 extremities NEUROLOGICAL: Cranial nerves II-12 are grossly intact, speech is not dysarthric, able to wiggle his toes. Sensations intact in bilateral lower extremities. No urinary or fecal incontinence. PSYCHIATRIC: Alert, oriented to person, not oriented to place or time, content of speech is not consistent with conversation CT of the spine "IMPRESSION: There is sclerosis and facet hypertrophy bilaterally. No evidence of fracture." Acute compression fracture of L4 with 40% loss of height and 3 mm retropulsion of superior endplate causing moderate central spinal canal stenosis. Mild compression fracture of superior endplate of L1 and L3 without any retropulsion. MICROBIOLOGY: Please see below. ASSESSMENT: Mr. Savage is an 84-year-old male with a past medical history of A. fib, chronic hypertension, dyslipidemia, chronic subdural hematoma, dementia, hypothyroidism, BPH, GERD, and dyslipidemia will be admitted evaluation of falls resulting vertebral fractures. CAT scan showed acute compression fracture of L4 with a mild to moderate spinal canal stenosis. The family wants only conservative management. Orthopedics has been consulted for their recommendations. Patient will require TS LO brace and currently awaiting placement. The patient is DNR/DNI PLAN: 1.Fall 2/2 Weakness resulting on Vertebral fractures : Mainly T4 with moderate spinal stenosis. CT of the head and cervical spine shows no acute process. I had a detailed discussion with the orthopedics and as per them. They will see the patient. I have already discussed in detail with the family if they want any intervention and as per family, they wanted only conservative management. Discussed the risks and benefits of that including a cord compression, and paralysis. They understand and they know that he will not be able to tolerate any procedure because of his advanced age and wants only conservative management. Possibly the patient will require TS LO brace and orthopedics has been consulted for that. Pain control has been initiated. Fall precautions and bed rest has been started. 2. A fib: There was some concern of RVR in the ER, but the patient currently is rate controlled with A. fib. The heart is 85. The patient continues to be in 100 twice a day of metoprolol. The patient has a chart of a score of 4, but the patient is not a candidate for anti-cognition. Discussed with the family in detail regarding that. And is high risk of fall and has had recent subdural hematoma. Continue telemetry monitoring 3. Grade 1 Chronic Diastolic CHF: Continue IV Lasix and 2 g sodium diet. 4. Hypothyroidism: c/w home meds SCDs for subdural hematoma Had a detailed discussion with the daughter regarding his advised that it is and after discussion of around 20 minutes. It was decided the patient will be DNR/DNI. All the paperwork has been done. Disposition : TS LO brace at age and the patient is awaiting placement/PT clearance VS,Panchitobone, I+O VS, Fishbone, I+O Laboratory Tests 08/19/19 06:36 Red Blood Count 4.79, Mean Corpuscular Volume 86.8, Mean Corpuscular Hemoglobin 29.0, Mean Corpuscular Hemoglobin Concent 33.4, Red Cell Distribution Width 12.3, Neutrophils (%) (Auto) 77.1 H, Lymphocytes (%) (Auto) 8.8 L, Monocytes (%) (Auto) 10.6 H, Eosinophils (%) (Auto) 2.5, Basophils (%) (Auto) 0.5, Neutrophils # (Auto) 5.6, Lymphocytes # (Auto) 0.6 L, Monocytes # (Auto) 0.8, Eosinophils # (Auto) 0.2, Basophils # (Auto) 0.0, Calcium Level 8.5 L Vital Signs Date Time Temp Pulse Resp B/P (MAP) Pulse Ox O2 Delivery O2 Flow Rate FiO2 08/19/19 10:00 97.3 83 18 134/82 (99) 94 08/15/19 17:24 Room Air I&O- Last 24 Hours up to 6 AM 08/19/19 06:00 Intake Total 636 ml Output Total 200 ml Balance 436 ml KICHLOO,COREY A. MD Aug 19, 2019 13:04
[2019-08-19 14:00] VITALS: BP 108/65
[2019-08-19 18:00] VITALS: BP 142/84
[2019-08-19] MEDS: ATORVASTATIN 20 MG TAB PO SCH (19:37)
[2019-08-19 22:00] VITALS: BP 144/78
[2019-08-20 02:00] VITALS: BP 149/89
[2019-08-20] MEDS: LEVOTHYROXINE 50MCG TABLET (0.05MG) PO SCH (05:18)
[2019-08-20 06:00] VITALS: BP 140/78
[2019-08-20 06:22] LABS: BASO # 0.1 10^3/uL (0.0-0.2); BASO % 0.7 % (0.0-1.0); EOS # 0.2 10^3/uL (0.0-0.5); EOS % 2.6 % (0.0-3.0); HEMATOCRIT 40.1 % (42.0-52.0); HEMOGLOBIN 13.5 g/dl (13.5-17.5); LYMPH # 0.6 10^3/uL (1.5-5.0); LYMPH % 7.7 % (24.0-44.0); MEAN CORPUSCULAR HGB CONC 33.7 g/dl (32.0-36.5); MEAN CORPUSCULAR VOLUME 89.1 fl (80.0-96.0); MONO # 0.8 10^3/uL (0.0-0.8); MONO % 10.4 % (0.0-5.0); NEUTROPHILS # 5.8 10^3/uL (1.5-8.5); NEUTROPHILS % 77.7 % (36.0-66.0); PLATELET COUNT, AUTOMATED 266 10^3/uL (150-450); WHITE BLOOD COUNT 7.4 10^3/uL (4.0-10.0)
[2019-08-20 06:47] LABS: BLOOD UREA NITROGEN 16 MG/DL (7-18); CALCIUM LEVEL 8.2 MG/DL (8.8-10.2); CARBON DIOXIDE LEVEL 28 MEQ/L (21-32); CHLORIDE LEVEL 105 MEQ/L (98-107); CREATININE FOR GFR 0.73 MG/DL (0.70-1.30); GLOMERULAR FILTRATION RATE > 60.0 (>35); GLUCOSE, FASTING 86 MG/DL (70-100); POTASSIUM SERUM 3.4 MEQ/L (3.5-5.1); SODIUM LEVEL 139 MEQ/L (136-145)
[2019-08-20] MEDS ORDERED: POTASSIUM CHLORIDE 10 MEQ SR TABLET PO ONE (09:00)
[2019-08-20] MEDS: DUTASTERIDE 0.5 MG CAP (AVODART) PO SCH (09:18)
[2019-08-20] MEDS: VITAMIN D 1,000 INTERNATIONAL UNITS TABLET PO SCH (09:18)
[2019-08-20] MEDS: FUROSEMIDE 40 MG TAB PO SCH (09:18)
[2019-08-20] MEDS: METOPROLOL TARTRATE 100 MG TAB PO SCH ×2 (09:22→19:39)
[2019-08-20] MEDS: LISINOPRIL *2.5 MG* TAB PO SCH (09:22)
[2019-08-20 10:00] VITALS: BP 153/99
--- NOTE | 2019-08-20 10:19 | IPNPDOC ---
Subjective Date Seen The patient was seen on 08/20/19. Subjective Chief Complaint/HPI Patient is a awake, alert, but does not make sense with his conversation Pulmonary: Denies: Dyspnea, Cough, Pleuritic Chest Pain, Other Symptoms Cardiovascular: Denies: Chest Pain, Palpitations, Orthopnea, Paroxysmal Noc. Dyspnea, Edema, Lt Headedness, Other Symptoms Gastrointestinal: Denies: Nausea, Vomiting, Abdominal Pain, Diarrhea, Constipation, Melena, Hematochezia, Other Symptoms Musculoskeletal: Denies: Neck Pain, Back Pain, Shoulder Pain, Arm Pain, Hand Pain, Leg Pain, Foot Pain, Joint Pain, Muscle Pain, Spasms, Other Symptoms Neurological: Denies: Weakness, Numbness, Incoordination, Change in speech, Confusion, Seizures, Other Symptoms Objective Physical Examination General Exam: Positive: Alert Eye Exam: Positive: PERRLA, Conjunctiva & lids normal ENT Exam: Positive: Atraumatic, Mucous membr. moist/pink Chest Exam: Positive: Clear to auscultation, Normal air movement Heart Exam: Positive: Rate Normal, Normal S1, Normal S2 Abdomen Exam: Positive: Normal bowel sounds, Soft, Tenderness Skin Exam: Positive: Nl turgor and temperature Assessment /Plan Problems (1) Compression fracture of L4 vertebra Status: Acute Problem Text: Fall 2/2 Weakness resulting on Vertebral fractures : Mainly T4 with moderate spinal stenosis. CT of the head and cervical spine shows no acute process. I had a detailed discussion with the orthopedics and as per them. They will see the patient. I have already discussed in detail with the family if they want any intervention and as per family, they wanted only conservative management. Discussed the risks and benefits of that including a cord compression, and paralysis. They understand and they know that he will not be able to tolerate any procedure because of his advanced age and wants only conservative management. Possibly the patient will require TS LO brace and orthopedics has been consulted for that. Pain control Fall precautions Awaiting placement (2) Hypothyroid Status: Chronic Problem Text: Continue home meds (3) Afib Status: Chronic Problem Text: Rate is under well control Continue home meds (4) Acute on chronic diastolic CHF (congestive heart failure) Status: Acute Problem Text: Stable grade 1. Acute on systolic and diastolic heart failure Continue by mouth Lasix. Metoprolol and losartan Plan/VTE VTE Prophylaxis Ordered?: Yes VS, I&O, 24H, Fishbone Vital Signs/I&O Vital Signs Date Time Temp Pulse Resp B/P (MAP) Pulse Ox O2 Delivery O2 Flow Rate FiO2 08/20/19 10:00 97.1 61 16 153/99 (117) 94 08/15/19 17:24 Room Air I&O- Last 24 Hours up to 6 AM 08/20/19 06:00 Intake Total 300 ml Output Total 150 ml Balance 150 ml Laboratory Data 24H LABS Laboratory Tests 2 08/20/19 05:18: Immature Granulocyte % (Auto) 0.9, White Blood Count 7.4, Red Blood Count 4.50, Hemoglobin 13.5, Hematocrit 40.1L, Mean Corpuscular Volume 89.1, Mean Corpuscular Hemoglobin 30.0, Mean Corpuscular Hemoglobin Concent 33.7, Red Cell Distribution Width 12.2, Platelet Count 266, Neutrophils (%) (Auto) 77.7H, Lymphocytes (%) (Auto) 7.7L, Monocytes (%) (Auto) 10.4H, Eosinophils (%) (Auto) 2.6, Basophils (%) (Auto) 0.7, Neutrophils # (Auto) 5.8, Lymphocytes # (Auto) 0.6L, Monocytes # (Auto) 0.8, Eosinophils # (Auto) 0.2, Basophils # (Auto) 0.1, Nucleated Red Blood Cells % (auto) 0.0, Anion Gap 6L, Glomerular Filtration Rate > 60.0, Blood Urea Nitrogen 16, Creatinine 0.73, Sodium Level 139, Potassium Level 3.4L, Chloride Level 105, Carbon Dioxide Level 28, Calcium Level 8.2L CBC/BMP Laboratory Tests 08/20/19 05:18 Red Blood Count 4.50, Mean Corpuscular Volume 89.1, Mean Corpuscular Hemoglobin 30.0, Mean Corpuscular Hemoglobin Concent 33.7, Red Cell Distribution Width 12.2, Neutrophils (%) (Auto) 77.7 H, Lymphocytes (%) (Auto) 7.7 L, Monocytes (%) (Auto) 10.4 H, Eosinophils (%) (Auto) 2.6, Basophils (%) (Auto) 0.7, Neutrophils # (Auto) 5.8, Lymphocytes # (Auto) 0.6 L, Monocytes # (Auto) 0.8, Eosinophils # (Auto) 0.2, Basophils # (Auto) 0.1, Calcium Level 8.2 L Microbiology Microbiology 08/15/19 Urine Culture - Final, Complete CLEMENT BARRIENTOS MD Aug 20, 2019 10:19
[2019-08-20 14:00] VITALS: BP 138/72
[2019-08-20 18:00] VITALS: BP 150/87
[2019-08-20] MEDS: ATORVASTATIN 20 MG TAB PO SCH (19:38)
[2019-08-20 20:00] VITALS: BP 150/88
[2019-08-21 02:00] VITALS: BP 158/93
[2019-08-21] MEDS: LEVOTHYROXINE 50MCG TABLET (0.05MG) PO SCH (05:19)
[2019-08-21 06:13] LABS: BASO % 0.4 % (0.0-1.0); EOS # 0.2 10^3/uL (0.0-0.5); EOS % 2.4 % (0.0-3.0); HEMATOCRIT 41.4 % (42.0-52.0); HEMOGLOBIN 13.6 g/dl (13.5-17.5); LYMPH # 0.7 10^3/uL (1.5-5.0); LYMPH % 9.6 % (24.0-44.0); MEAN CORPUSCULAR HEMOGLOBIN 28.8 pg (27.0-33.0); MEAN CORPUSCULAR HGB CONC 32.9 g/dl (32.0-36.5); MEAN CORPUSCULAR VOLUME 87.5 fl (80.0-96.0); MONO # 0.8 10^3/uL (0.0-0.8); MONO % 10.7 % (0.0-5.0); NEUTROPHILS # 5.6 10^3/uL (1.5-8.5); NEUTROPHILS % 76.1 % (36.0-66.0); PLATELET COUNT, AUTOMATED 258 10^3/uL (150-450); RED BLOOD COUNT 4.73 10^6/uL (4.30-6.10); WHITE BLOOD COUNT 7.4 10^3/uL (4.0-10.0)
[2019-08-21 06:28] LABS: BLOOD UREA NITROGEN 12 MG/DL (7-18); CALCIUM LEVEL 8.5 MG/DL (8.8-10.2); CARBON DIOXIDE LEVEL 27 MEQ/L (21-32); CHLORIDE LEVEL 104 MEQ/L (98-107); CREATININE FOR GFR 0.71 MG/DL (0.70-1.30); GLOMERULAR FILTRATION RATE > 60.0 (>35); GLUCOSE, FASTING 87 MG/DL (70-100); POTASSIUM SERUM 3.9 MEQ/L (3.5-5.1); SODIUM LEVEL 137 MEQ/L (136-145)
[2019-08-21] MEDS: DUTASTERIDE 0.5 MG CAP (AVODART) PO SCH (09:14)
[2019-08-21] MEDS: FUROSEMIDE 40 MG TAB PO SCH (09:14)
[2019-08-21] MEDS: LISINOPRIL *2.5 MG* TAB PO SCH (09:15)
[2019-08-21] MEDS: METOPROLOL TARTRATE 100 MG TAB PO SCH ×2 (09:15→21:33)
[2019-08-21] MEDS: VITAMIN D 1,000 INTERNATIONAL UNITS TABLET PO SCH (09:15)
[2019-08-21 10:00] VITALS: BP 145/82
--- NOTE | 2019-08-21 11:36 | IPNPDOC ---
Subjective Date Seen The patient was seen on 08/21/19. Subjective Chief Complaint/HPI Patient offers no new complaints, in no apparent distress awaiting placement General: Denies: ROS Unobtainable, Chills, Night Sweats, Fatigue, Malaise, Normal Appetite, Other Symptoms Constitutional: Denies: Chills, Fever, Malaise, Night Sweats, Weakness, Fatigue, Weight Loss, Lethargy, Other Eyes: Denies: Pain, Vision change, Conjunctivae inflammation, Eyelid inflammation, Redness, Other Skin: Denies: Rash, Lesions, Jaundice, Bruising, Itching, Dry, Breakdown, Nail Changes, Other Pulmonary: Denies: Dyspnea, Cough, Pleuritic Chest Pain, Other Symptoms Cardiovascular: Denies: Chest Pain, Palpitations, Orthopnea, Paroxysmal Noc. Dyspnea, Edema, Lt Headedness, Other Symptoms Gastrointestinal: Denies: Nausea, Vomiting, Abdominal Pain, Diarrhea, Constipation, Melena, Hematochezia, Other Symptoms Endocrine: Denies: Polydipsia, Polyphagia, Polyuria, Heat Intolerance, Cold Intolerance, Other Endocrine Sx Musculoskeletal: Denies: Neck Pain, Back Pain, Shoulder Pain, Arm Pain, Hand Pain, Leg Pain, Foot Pain, Joint Pain, Muscle Pain, Spasms, Other Symptoms Objective Physical Examination General Exam: Positive: Alert Eye Exam: Positive: PERRLA, Conjunctiva & lids normal ENT Exam: Positive: Atraumatic, Mucous membr. moist/pink Chest Exam: Positive: Clear to auscultation, Normal air movement Heart Exam: Positive: Rate Normal, Normal S1, Normal S2 Abdomen Exam: Positive: Normal bowel sounds, Soft, Tenderness Skin Exam: Positive: Nl turgor and temperature Assessment /Plan Problems (1) Compression fracture of L4 vertebra Status: Acute Problem Text: Fall 2/2 Weakness resulting on Vertebral fractures : Mainly T4 with moderate spinal stenosis. CT of the head and cervical spine shows no acute process. I had a detailed discussion with the orthopedics and as per them. They will see the patient. I have already discussed in detail with the family if they want any intervention and as per family, they wanted only conservative management. Discussed the risks and benefits of that including a cord compression, and paralysis. They understand and they know that he will not be able to tolerate any procedure because of his advanced age and wants only conservative management. Possibly the patient will require TS LO brace and orthopedics has been consulted for that. Pain control as per orders Fall precautions has been ordered Awaiting placement. Discussed with case management (2) Hypothyroid Status: Chronic Problem Text: Continue home meds (3) Afib Status: Chronic Problem Text: Rate is under well control Continue home meds (4) Acute on chronic diastolic CHF (congestive heart failure) Status: Acute Problem Text: Stable grade 1. Acute on systolic and diastolic heart failure Continue by mouth Lasix. Metoprolol and losartan Plan/VTE VTE Prophylaxis Ordered?: Yes VS, I&O, 24H, Fishbone Vital Signs/I&O Vital Signs Date Time Temp Pulse Resp B/P (MAP) Pulse Ox O2 Delivery O2 Flow Rate FiO2 08/21/19 10:00 97.2 93 15 145/82 (103) 98 08/15/19 17:24 Room Air I&O- Last 24 Hours up to 6 AM 08/21/19 06:00 Intake Total 720 ml Output Total 100 ml Balance 620 ml Laboratory Data 24H LABS Laboratory Tests 2 08/21/19 05:07: Immature Granulocyte % (Auto) 0.8, White Blood Count 7.4, Red Blood Count 4.73, Hemoglobin 13.6, Hematocrit 41.4L, Mean Corpuscular Volume 87.5, Mean Corpuscular Hemoglobin 28.8, Mean Corpuscular Hemoglobin Concent 32.9, Red Cell Distribution Width 12.1, Platelet Count 258, Neutrophils (%) (Auto) 76.1H, Lymphocytes (%) (Auto) 9.6L, Monocytes (%) (Auto) 10.7H, Eosinophils (%) (Auto) 2.4, Basophils (%) (Auto) 0.4, Neutrophils # (Auto) 5.6, Lymphocytes # (Auto) 0.7L, Monocytes # (Auto) 0.8, Eosinophils # (Auto) 0.2, Basophils # (Auto) 0.0, Nucleated Red Blood Cells % (auto) 0.0, Anion Gap 6L, Glomerular Filtration Rate > 60.0, Blood Urea Nitrogen 12, Creatinine 0.71, Sodium Level 137, Potassium Level 3.9, Chloride Level 104, Carbon Dioxide Level 27, Calcium Level 8.5L CBC/BMP Laboratory Tests 08/21/19 05:07 Red Blood Count 4.73, Mean Corpuscular Volume 87.5, Mean Corpuscular Hemoglobin 28.8, Mean Corpuscular Hemoglobin Concent 32.9, Red Cell Distribution Width 12.1, Neutrophils (%) (Auto) 76.1 H, Lymphocytes (%) (Auto) 9.6 L, Monocytes (%) (Auto) 10.7 H, Eosinophils (%) (Auto) 2.4, Basophils (%) (Auto) 0.4, Neutrophils # (Auto) 5.6, Lymphocytes # (Auto) 0.7 L, Monocytes # (Auto) 0.8, Eosinophils # (Auto) 0.2, Basophils # (Auto) 0.0, Calcium Level 8.5 L Microbiology Microbiology 08/15/19 Urine Culture - Final, Complete CLEMENT BARRIENTOS MD Aug 21, 2019 11:35
[2019-08-21 14:00] VITALS: BP 132/78
[2019-08-21 16:00] VITALS: BP 135/65
[2019-08-21] MEDS: traMADol 50 MG TAB PO PRN (21:31)
[2019-08-21] MEDS: ATORVASTATIN 20 MG TAB PO SCH (21:33)
[2019-08-21 22:00] VITALS: BP 134/78
[2019-08-22 02:00] VITALS: BP 147/83
[2019-08-22] MEDS: LEVOTHYROXINE 50MCG TABLET (0.05MG) PO SCH (05:49)
[2019-08-22 05:57] LABS: BASO # 0.1 10^3/uL (0.0-0.2); BASO % 0.7 % (0.0-1.0); EOS # 0.2 10^3/uL (0.0-0.5); EOS % 3.3 % (0.0-3.0); LYMPH # 0.8 10^3/uL (1.5-5.0); LYMPH % 11.2 % (24.0-44.0); MEAN CORPUSCULAR HEMOGLOBIN 29.5 pg (27.0-33.0); MEAN CORPUSCULAR HGB CONC 33.3 g/dl (32.0-36.5); MEAN CORPUSCULAR VOLUME 88.6 fl (80.0-96.0); MONO # 0.8 10^3/uL (0.0-0.8); NEUTROPHILS # 5.4 10^3/uL (1.5-8.5); PLATELET COUNT, AUTOMATED 253 10^3/uL (150-450); RED BLOOD COUNT 4.74 10^6/uL (4.30-6.10); WHITE BLOOD COUNT 7.3 10^3/uL (4.0-10.0)
[2019-08-22 06:00] VITALS: BP 119/65
[2019-08-22 06:13] LABS: BLOOD UREA NITROGEN 14 MG/DL (7-18); CALCIUM LEVEL 8.2 MG/DL (8.8-10.2); CARBON DIOXIDE LEVEL 25 MEQ/L (21-32); CHLORIDE LEVEL 103 MEQ/L (98-107); CREATININE FOR GFR 0.73 MG/DL (0.70-1.30); GLOMERULAR FILTRATION RATE > 60.0 (>35); GLUCOSE, FASTING 78 MG/DL (70-100); POTASSIUM SERUM 3.8 MEQ/L (3.5-5.1); SODIUM LEVEL 135 MEQ/L (136-145)
[2019-08-22] MEDS: FUROSEMIDE 40 MG TAB PO SCH (08:38)
[2019-08-22] MEDS: LISINOPRIL *2.5 MG* TAB PO SCH (08:38)
[2019-08-22] MEDS: VITAMIN D 1,000 INTERNATIONAL UNITS TABLET PO SCH (08:38)
[2019-08-22] MEDS: DUTASTERIDE 0.5 MG CAP (AVODART) PO SCH (08:38)
[2019-08-22] MEDS: METOPROLOL TARTRATE 100 MG TAB PO SCH ×2 (08:38→20:33)
[2019-08-22 10:00] VITALS: BP 120/70
[2019-08-22 14:00] VITALS: BP 114/71
--- NOTE | 2019-08-22 18:22 | IPNPDOC ---
Date Seen The patient was seen on 08/22/19. Progress Note SUBJECTIVE: Patient was seen and examined this morning. He currently has no new complaints. There have been no adverse events reported overnight. OBJECTIVE PHYSICAL EXAMINATION: VITAL SIGNS: Please see below. GENERAL: Awake, alert, and oriented. Appears in no acute distress. Sitting up in chair eating breakfast. Wearing back brace HEENT: Atruamatic, normocephalic. Eyes are nonicteric. Trachea is midline. CARDIOVASCULAR: Normal S1, S2. Irregularly irregular rhythm. Normal rate RESPIRATORY: Clear vesicular breath sounds bilaterally. Good respiratory effort. No wheezes, rhonchi, or rales ABDOMINAL: Soft, nondistended. Nontender to palpation in all 4 quadrants. No rebound tenderness or guarding EXTREMITIES: No edema. Full and equal pulses in bilateral upper and lower extremities NEUROLOGICAL: No focal neurological deficits PSYCHOLOGICAL: Mood and affect appear appropriate LABORATORY DATA, IMAGING STUDIES, MICROBIOLOGY: Please see below. DVT prophylaxis ordered?: Hx of subdural. Mechanical DVT prophylaxis ASSESSMENT AND PLAN: Patient is an 84 year old male with a past medical history significant for atrial fibrillation, chronic hypertension, dyslipidemia, chronic subdural hematoma, dementia, hypothyroidism, benign prostatic hypertrophy, Esophageal reflux disease who was admitted for a fall resulting vertebral fractures. Patient received a CAT scan which demonstrated acute compression fracture of L4 with mild to moderate spinal canal stenosis. The family has indic ated that they only want a conservative approach. Orthopedic surgery hasn't consulted for recommendations. Patient has been fitted with a brace and is currently pending placement. Patient remains DNR/DNI PROBLEMS: 1. Fall secondary to weakness resulting in vertebral fractures -Patient has moderate spinal stenosis of the T4 region. His CT of the head and cervical spine demonstrated no acute process. The patient has had a detailed discussion with orthopedics.. The family has stated that they do not want any intervention at this time and would only like conservative management. Patient and family has voiced understanding of the risks of cord compression and paralysis. Patient was fitted with a back brace. He is currently awaiting placement -Continue pain medications. -Patient will be made ALC status. 2., Hypothyroidism -Will continue home medications 3. Atrial fibrillation -Patient is currently rate controlled. He is not on any anticoagulation as he has a history of subdural hematomas. 4. . Acute on chronic diastolic congestive heart failure -Grade 1 diastolic dysfunction. -Patient currently receives Lasix by mouth metoprolol. And losartan DISPOSITION: She is currently awaiting placement. He is ALC status. I saw and evaluated the patient. I agree with the findings and plan of care as documented in the above note VS, I&O, 24H, Fishbone Vital Signs/I&O Vital Signs Date Time Temp Pulse Resp B/P (MAP) Pulse Ox O2 Delivery O2 Flow Rate FiO2 08/22/19 14:00 98.0 71 18 114/71 (85) 94 I&O- Last 24 Hours up to 6 AM 08/22/19 05:59 Intake Total 1978 ml Output Total 100 ml Balance 1878 ml Laboratory Data 24H LABS Laboratory Tests 2 08/22/19 05:17: Immature Granulocyte % (Auto) 0.8, White Blood Count 7.3, Red Blood Count 4.74, Hemoglobin 14.0, Hematocrit 42.0, Mean Corpuscular Volume 88.6, Mean Corpuscular Hemoglobin 29.5, Mean Corpuscular Hemoglobin Concent 33.3, Red Cell Distribution Width 12.2, Platelet Count 253, Neutrophils (%) (Auto) 73.0H, Lymphocytes (%) (Auto) 11.2L, Monocytes (%) (Auto) 11.0H, Eosinophils (%) (Auto) 3.3H, Basophils (%) (Auto) 0.7, Neutrophils # (Auto) 5.4, Lymphocytes # (Auto) 0.8L, Monocytes # (Auto) 0.8, Eosinophils # (Auto) 0.2, Basophils # (Auto) 0.1, Nucleated Red Blood Cells % (auto) 0.0, Anion Gap 7L, Glomerular Filtration Rate > 60.0, Blood Urea Nitrogen 14, Creatinine 0.73, Sodium Level 135L, Potassium Level 3.8, Chloride Level 103, Carbon Dioxide Level 25, Calcium Level 8.2L CBC/BMP Laboratory Tests 08/22/19 05:17 Red Blood Count 4.74, Mean Corpuscular Volume 88.6, Mean Corpuscular Hemoglobin 29.5, Mean Corpuscular Hemoglobin Concent 33.3, Red Cell Distribution Width 12.2, Neutrophils (%) (Auto) 73.0 H, Lymphocytes (%) (Auto) 11.2 L, Monocytes (%) (Auto) 11.0 H, Eosinophils (%) (Auto) 3.3 H, Basophils (%) (Auto) 0.7, Neutrophils # (Auto) 5.4, Lymphocytes # (Auto) 0.8 L, Monocytes # (Auto) 0.8, Eosinophils # (Auto) 0.2, Basophils # (Auto) 0.1, Calcium Level 8.2 L Microbiology Microbiology 08/15/19 Urine Culture - Final, Complete LEELA PATIÑO DO Aug 22, 2019 18:22 ARABELLA ORTEGA MD Aug 24, 2019 10:50
[2019-08-22] MEDS: ATORVASTATIN 20 MG TAB PO SCH (20:26)
[2019-08-22] MEDS: traMADol 50 MG TAB PO PRN (20:35)
[2019-08-23 05:37] LABS: BASO % 0.6 % (0.0-1.0); EOS # 0.2 10^3/uL (0.0-0.5); EOS % 3.1 % (0.0-3.0); HEMOGLOBIN 13.2 g/dl (13.5-17.5); LYMPH # 1.1 10^3/uL (1.5-5.0); LYMPH % 16.4 % (24.0-44.0); MEAN CORPUSCULAR HEMOGLOBIN 29.3 pg (27.0-33.0); MEAN CORPUSCULAR VOLUME 88.9 fl (80.0-96.0); MONO % 14.8 % (0.0-5.0); NEUTROPHILS # 4.1 10^3/uL (1.5-8.5); NEUTROPHILS % 64.2 % (36.0-66.0); PLATELET COUNT, AUTOMATED 257 10^3/uL (150-450); WHITE BLOOD COUNT 6.4 10^3/uL (4.0-10.0)
[2019-08-23] MEDS: LEVOTHYROXINE 50MCG TABLET (0.05MG) PO SCH (05:50)
[2019-08-23 05:55] LABS: BLOOD UREA NITROGEN 15 MG/DL (7-18); CALCIUM LEVEL 8.4 MG/DL (8.8-10.2); CARBON DIOXIDE LEVEL 27 MEQ/L (21-32); CHLORIDE LEVEL 104 MEQ/L (98-107); CREATININE FOR GFR 0.84 MG/DL (0.70-1.30); GLOMERULAR FILTRATION RATE > 60.0 (>35); GLUCOSE, FASTING 82 MG/DL (70-100); POTASSIUM SERUM 3.8 MEQ/L (3.5-5.1); SODIUM LEVEL 137 MEQ/L (136-145)
[2019-08-23 06:00] VITALS: BP 128/74
[2019-08-23] MEDS: VITAMIN D 1,000 INTERNATIONAL UNITS TABLET PO SCH (09:09)
[2019-08-23] MEDS: FUROSEMIDE 40 MG TAB PO SCH (09:09)
[2019-08-23] MEDS: LISINOPRIL *2.5 MG* TAB PO SCH (09:09)
[2019-08-23] MEDS: DUTASTERIDE 0.5 MG CAP (AVODART) PO SCH (09:09)
[2019-08-23] MEDS: METOPROLOL TARTRATE 100 MG TAB PO SCH ×2 (09:10→20:49)
[2019-08-23] MEDS ORDERED: FLUBLOK(EGG FREE)(QUAD)INFLUENZA VACC 0.5ML SYRINGE (90682)18YRS&OLDER IM ONE (13:00)
[2019-08-23] MEDS: traMADol 50 MG TAB PO PRN (20:47)
[2019-08-23] MEDS: ATORVASTATIN 20 MG TAB PO SCH (20:50)
[2019-08-24 06:00] VITALS: BP 137/71
[2019-08-24] MEDS: LEVOTHYROXINE 50MCG TABLET (0.05MG) PO SCH (06:10)
[2019-08-24] MEDS: LISINOPRIL *2.5 MG* TAB PO SCH (08:26)
[2019-08-24] MEDS: DUTASTERIDE 0.5 MG CAP (AVODART) PO SCH (08:26)
[2019-08-24] MEDS: METOPROLOL TARTRATE 100 MG TAB PO SCH ×2 (08:26→21:34)
[2019-08-24] MEDS: FUROSEMIDE 40 MG TAB PO SCH (08:26)
[2019-08-24] MEDS: VITAMIN D 1,000 INTERNATIONAL UNITS TABLET PO SCH (08:27)
[2019-08-24] MEDS ORDERED: FLUBLOK(EGG FREE)(QUAD)INFLUENZA VACC 0.5ML SYRINGE (90682)18YRS&OLDER IM ONE (09:00)
[2019-08-24] MEDS: ATORVASTATIN 20 MG TAB PO SCH (21:34)
[2019-08-24] MEDS: ACETAMINOPHEN 650MG ER TAB (TYLENOL ARTHRITIS) PO PRN (21:34)
[2019-08-25 06:00] VITALS: BP 135/80
[2019-08-25] MEDS: LEVOTHYROXINE 50MCG TABLET (0.05MG) PO SCH (07:21)
[2019-08-25] MEDS: VITAMIN D 1,000 INTERNATIONAL UNITS TABLET PO SCH (08:53)
[2019-08-25] MEDS: DUTASTERIDE 0.5 MG CAP (AVODART) PO SCH (08:53)
[2019-08-25] MEDS: FUROSEMIDE 40 MG TAB PO SCH (08:53)
[2019-08-25] MEDS: LISINOPRIL *2.5 MG* TAB PO SCH (08:53)
[2019-08-25] MEDS: METOPROLOL TARTRATE 100 MG TAB PO SCH ×2 (08:53→20:09)
[2019-08-25] MEDS: ATORVASTATIN 20 MG TAB PO SCH (20:09)
[2019-08-26] MEDS: ACETAMINOPHEN 650MG ER TAB (TYLENOL ARTHRITIS) PO PRN ×2 (02:08→20:37)
[2019-08-26] MEDS: LEVOTHYROXINE 50MCG TABLET (0.05MG) PO SCH (05:27)
[2019-08-26 06:00] VITALS: BP 124/71
[2019-08-26] MEDS: METOPROLOL TARTRATE 100 MG TAB PO SCH ×2 (10:00→20:39)
[2019-08-26] MEDS: LISINOPRIL *2.5 MG* TAB PO SCH (10:00)
[2019-08-26] MEDS: FUROSEMIDE 40 MG TAB PO SCH (10:00)
[2019-08-26] MEDS: VITAMIN D 1,000 INTERNATIONAL UNITS TABLET PO SCH (10:18)
[2019-08-26] MEDS: DUTASTERIDE 0.5 MG CAP (AVODART) PO SCH (10:18)
[2019-08-26] MEDS: ATORVASTATIN 20 MG TAB PO SCH (20:39)
[2019-08-27 06:00] VITALS: BP 158/93
[2019-08-27] MEDS: LEVOTHYROXINE 50MCG TABLET (0.05MG) PO SCH (06:32)
[2019-08-27] MEDS: LISINOPRIL *2.5 MG* TAB PO SCH (09:31)
[2019-08-27] MEDS: VITAMIN D 1,000 INTERNATIONAL UNITS TABLET PO SCH (09:31)
[2019-08-27] MEDS: FUROSEMIDE 40 MG TAB PO SCH (09:32)
[2019-08-27] MEDS: METOPROLOL TARTRATE 100 MG TAB PO SCH ×2 (09:32→20:06)
[2019-08-27] MEDS: DUTASTERIDE 0.5 MG CAP (AVODART) PO SCH (09:32)
[2019-08-27] MEDS: ATORVASTATIN 20 MG TAB PO SCH (20:05)
[2019-08-28] MEDS: LEVOTHYROXINE 50MCG TABLET (0.05MG) PO SCH (05:26)
[2019-08-28 06:00] VITALS: BP 130/71
[2019-08-28] MEDS: FUROSEMIDE 40 MG TAB PO SCH (08:30)
[2019-08-28] MEDS: VITAMIN D 1,000 INTERNATIONAL UNITS TABLET PO SCH (08:30)
[2019-08-28] MEDS: DUTASTERIDE 0.5 MG CAP (AVODART) PO SCH (08:30)
[2019-08-28] MEDS: LISINOPRIL *2.5 MG* TAB PO SCH (08:32)
[2019-08-28] MEDS: METOPROLOL TARTRATE 100 MG TAB PO SCH ×2 (08:33→20:41)
[2019-08-28] MEDS: ACETAMINOPHEN 650MG ER TAB (TYLENOL ARTHRITIS) PO PRN (17:46)
[2019-08-28] MEDS: ATORVASTATIN 20 MG TAB PO SCH (20:35)
[2019-08-28] MEDS: traMADol 50 MG TAB PO PRN (20:36)
[2019-08-29] MEDS: LEVOTHYROXINE 50MCG TABLET (0.05MG) PO SCH (05:48)
[2019-08-29 06:00] VITALS: BP 138/84
[2019-08-29] MEDS: VITAMIN D 1,000 INTERNATIONAL UNITS TABLET PO SCH (09:22)
[2019-08-29] MEDS: DUTASTERIDE 0.5 MG CAP (AVODART) PO SCH (09:22)
[2019-08-29] MEDS: FUROSEMIDE 40 MG TAB PO SCH (09:22)
[2019-08-29] MEDS: LISINOPRIL *2.5 MG* TAB PO SCH (09:25)
[2019-08-29] MEDS: METOPROLOL TARTRATE 100 MG TAB PO SCH ×2 (09:26→22:11)
--- NOTE | 2019-08-29 09:26 | IPNPDOC ---
Date Seen The patient was seen on 08/29/19. Progress Note SUBJECTIVE: Patient was seen and examined this morning. He currently has no new complaints and there have been no adverse events reported overnight. Or previously. The patient does have a sitter was placed last week and patient was getting up out of bed. OBJECTIVE PHYSICAL EXAMINATION: VITAL SIGNS: Please see below. GENERAL: Awake, alert, and oriented. Appears in no acute distress. Lying in bed comfortably HEENT: Atruamatic, normocephalic. Eyes are nonicteric. Trachea is midline. CARDIOVASCULAR: Normal S1, S2. Irregularly irregular rhythm. Normal rate RESPIRATORY: Clear vesicular breath sounds bilaterally. Good respiratory effort. No wheezes, rhonchi, or rales ABDOMINAL: Soft, nondistended. Nontender to palpation in all 4 quadrants. No rebound tenderness or guarding EXTREMITIES: No edema. Full and equal pulses in bilateral upper and lower extremities NEUROLOGICAL: No focal neurological deficits PSYCHOLOGICAL: Mood and affect appear appropriate LABORATORY DATA, IMAGING STUDIES, MICROBIOLOGY: Please see below. DVT prophylaxis ordered?: Mechanical DVT prophylaxis ASSESSMENT AND PLAN: Patient is an 84-year-old male with past medical history significant for atrial fibrillation, chronic hypertension, dyslipidemia, chronic subdural hematoma, dementia, hypothyroidism, benign prostatic hypertrophy. Esophageal reflux disease who is admitted for fall resulting in vertebral fractures. Patient received a CAT scan which demonstrated acute compression fracture L4, mild to moderate spinal canal stenosis. The family indicated they only wanted conservative approach with orthopedic surgery has been consulted with recommendations. Patient has been fitted with a brace and currently pending placement. Patient remains DNR/DNI PROBLEMS: 1. Fall secondary to weakness resulting in vertebral fractures -Patient is fitted with a back brace. Currently awaiting placement -Continue pain medications. -Patient continues to work with physical therapy 2., Hypothyroidism -Will continue home medications 3. Atrial fibrillation -Patient is currently rate controlled. -He is not on any anticoagulation as he has a history of subdural hematomas. 4. . Chronic diastolic congestive heart failure -Grade 1 diastolic dysfunction. -Currently stable -Patient currently receives Lasix by mouth metoprolol. And losartan DISPOSITION: -He is currently awaiting placement. -He is ALC status. VS, I&O, 24H, Fishbone Vital Signs/I&O Vital Signs Date Time Temp Pulse Resp B/P (MAP) Pulse Ox O2 Delivery O2 Flow Rate FiO2 08/29/19 06:00 98.9 19 16 138/84 (529) 97 I&O- Last 24 Hours up to 6 AM 08/29/19 05:59 Intake Total 1392 ml Output Total 300 ml Balance 1092 ml GME ATTESTATION GME ATTESTATION My faculty preceptor for this patient encounter was physically present during the encounter and was fully available. All aspects of the patient interview, examination, medical decision making process, and medical care plan development were reviewed and approved by the faculty preceptor. The faculty preceptor is aware and concurs with the plan as stated in the body of this note and will attest to such by his/her cosignature. ATTENDING NOTE I, Nithya Harrison, have independently examined this patient and performed my own physical exam, as well as reviewed the documentation and edited where necessary. I have discussed in detail with the resident / student the findings and plan of treatment as documented by the resident / student and edited their note. I agree with their findings and treatment plan and have edited their documentation. I will continue to follow the patient during this hospital stay. LEELA PATIÑO DO Aug 29, 2019 09:26 NITHYA HARRISON MD Aug 29, 2019 10:35
[2019-08-29] MEDS: ATORVASTATIN 20 MG TAB PO SCH (22:11)
[2019-08-29] MEDS: traMADol 50 MG TAB PO PRN (22:13)
[2019-08-30 06:00] VITALS: BP 137/81
[2019-08-30] MEDS: LEVOTHYROXINE 50MCG TABLET (0.05MG) PO SCH (06:11)
[2019-08-30] MEDS: FUROSEMIDE 40 MG TAB PO SCH (09:42)
[2019-08-30] MEDS: METOPROLOL TARTRATE 100 MG TAB PO SCH ×2 (09:42→21:43)
[2019-08-30] MEDS: DUTASTERIDE 0.5 MG CAP (AVODART) PO SCH (09:42)
[2019-08-30] MEDS: LISINOPRIL *2.5 MG* TAB PO SCH (09:42)
[2019-08-30] MEDS: VITAMIN D 1,000 INTERNATIONAL UNITS TABLET PO SCH (09:43)
[2019-08-30] MEDS: ATORVASTATIN 20 MG TAB PO SCH (21:43)
[2019-08-30] MEDS: traMADol 50 MG TAB PO PRN (21:44)
[2019-08-31 06:00] VITALS: BP 129/74
[2019-08-31] MEDS: LEVOTHYROXINE 50MCG TABLET (0.05MG) PO SCH (06:40)
[2019-08-31] MEDS: VITAMIN D 1,000 INTERNATIONAL UNITS TABLET PO SCH (09:40)
[2019-08-31] MEDS: DUTASTERIDE 0.5 MG CAP (AVODART) PO SCH (09:40)
[2019-08-31] MEDS: METOPROLOL TARTRATE 100 MG TAB PO SCH ×2 (09:40→20:23)
[2019-08-31] MEDS: LISINOPRIL *2.5 MG* TAB PO SCH (09:41)
[2019-08-31] MEDS: FUROSEMIDE 40 MG TAB PO SCH (09:41)
[2019-08-31 09:55] VITALS: BP 130/78
[2019-08-31] MEDS: ATORVASTATIN 20 MG TAB PO SCH (20:22)
[2019-09-01] MEDS: traMADol 50 MG TAB PO PRN (00:45)
[2019-09-01 06:00] VITALS: BP 138/75
[2019-09-01] MEDS: LEVOTHYROXINE 50MCG TABLET (0.05MG) PO SCH (06:26)
[2019-09-01] MEDS: LISINOPRIL *2.5 MG* TAB PO SCH (09:29)
[2019-09-01] MEDS: DUTASTERIDE 0.5 MG CAP (AVODART) PO SCH (09:30)
[2019-09-01] MEDS: VITAMIN D 1,000 INTERNATIONAL UNITS TABLET PO SCH (09:30)
[2019-09-01] MEDS: FUROSEMIDE 40 MG TAB PO SCH (09:30)
[2019-09-01] MEDS: METOPROLOL TARTRATE 100 MG TAB PO SCH ×2 (09:30→20:39)
[2019-09-01] MEDS: ATORVASTATIN 20 MG TAB PO SCH (20:39)
[2019-09-01 22:00] VITALS: BP 134/80
[2019-09-01] MEDS: ACETAMINOPHEN 650MG ER TAB (TYLENOL ARTHRITIS) PO PRN (22:27)
[2019-09-02] MEDS: LEVOTHYROXINE 50MCG TABLET (0.05MG) PO SCH (05:57)
[2019-09-02 06:00] VITALS: BP 119/64
[2019-09-02] MEDS: DUTASTERIDE 0.5 MG CAP (AVODART) PO SCH (08:57)
[2019-09-02] MEDS: METOPROLOL TARTRATE 100 MG TAB PO SCH ×2 (08:58→20:06)
[2019-09-02] MEDS: FUROSEMIDE 40 MG TAB PO SCH (08:58)
[2019-09-02] MEDS: LISINOPRIL *2.5 MG* TAB PO SCH (08:58)
[2019-09-02] MEDS: VITAMIN D 1,000 INTERNATIONAL UNITS TABLET PO SCH (08:58)
[2019-09-02] MEDS: ATORVASTATIN 20 MG TAB PO SCH (20:06)
[2019-09-03] MEDS: traMADol 50 MG TAB PO PRN ×2 (01:47→15:24)
[2019-09-03 06:00] VITALS: BP 156/76
[2019-09-03] MEDS: LEVOTHYROXINE 50MCG TABLET (0.05MG) PO SCH (06:58)
[2019-09-03] MEDS: FUROSEMIDE 40 MG TAB PO SCH (10:04)
[2019-09-03] MEDS: LISINOPRIL *2.5 MG* TAB PO SCH (10:05)
[2019-09-03] MEDS: VITAMIN D 1,000 INTERNATIONAL UNITS TABLET PO SCH (10:06)
[2019-09-03] MEDS: METOPROLOL TARTRATE 100 MG TAB PO SCH ×2 (10:06→21:00)
[2019-09-03] MEDS: DUTASTERIDE 0.5 MG CAP (AVODART) PO SCH (10:06)
[2019-09-03] MEDS: LUMIGAN EYE DROPS (PATIENT'S OWN MED) OU SCH (20:59)
[2019-09-03] MEDS: ATORVASTATIN 20 MG TAB PO SCH (21:00)
[2019-09-04] MEDS: LEVOTHYROXINE 50MCG TABLET (0.05MG) PO SCH (05:54)
[2019-09-04 06:00] VITALS: BP 154/74
[2019-09-04] MEDS: VITAMIN D 1,000 INTERNATIONAL UNITS TABLET PO SCH (08:08)
[2019-09-04] MEDS: FUROSEMIDE 40 MG TAB PO SCH (08:08)
[2019-09-04] MEDS: DUTASTERIDE 0.5 MG CAP (AVODART) PO SCH (08:09)
[2019-09-04] MEDS: METOPROLOL TARTRATE 100 MG TAB PO SCH ×2 (08:10→20:43)
[2019-09-04] MEDS: LISINOPRIL *2.5 MG* TAB PO SCH (08:10)
[2019-09-04] MEDS: ATORVASTATIN 20 MG TAB PO SCH (20:43)
[2019-09-04] MEDS: LUMIGAN EYE DROPS (PATIENT'S OWN MED) OU SCH (20:44)
[2019-09-05] MEDS: LEVOTHYROXINE 50MCG TABLET (0.05MG) PO SCH (05:45)
[2019-09-05 06:00] VITALS: BP 139/79
[2019-09-05] MEDS: DUTASTERIDE 0.5 MG CAP (AVODART) PO SCH (09:21)
[2019-09-05] MEDS: VITAMIN D 1,000 INTERNATIONAL UNITS TABLET PO SCH (09:22)
[2019-09-05] MEDS: LISINOPRIL *2.5 MG* TAB PO SCH (09:22)
[2019-09-05] MEDS: METOPROLOL TARTRATE 100 MG TAB PO SCH ×2 (09:22→22:35)
[2019-09-05] MEDS: FUROSEMIDE 40 MG TAB PO SCH (09:22)
[2019-09-05] MEDS: ACETAMINOPHEN 650MG ER TAB (TYLENOL ARTHRITIS) PO PRN (11:14)
--- NOTE | 2019-09-05 12:53 | IPNPDOC ---
Text Note Date of Service The patient was seen on 09/05/19. NOTE Subjective: Patient was seen and examined at the bedside. He was seen sitting up eating breakfast. He denies any problems overnight. He has been seen ambulating around the nursing units without any difficulty, however with assistance. Objective: Vitals (See below) General: Lying in bed, no acute distress, comfortable, Awake / Alert HEENT: NC, AT CVS: RRR, +S1S2 Lungs: Fair air entry b/l, -w/r/r Abdomen: Soft, ND, NT, +BSx4 Extremities: - Edema, - Calf tenderness Assessment and plan: Patient is an 84-year-old male with past medical history significant for atrial fibrillation, chronic hypertension, dyslipidemia, chronic subdural hematoma, dementia, hypothyroidism, benign prostatic hypertrophy. Esophageal reflux disease who is admitted for fall resulting in vertebral fractures. Patient received a CAT scan which demonstrated acute compression fracture L4, mild to moderate spinal canal stenosis. The family indicated they only wanted conservative approach with orthopedic surgery has been consulted with recommendations. Patient has been fitted with a brace and currently pending placement. Patient remains DNR/DNI Fall secondary to weakness resulting in vertebral fractures - Patient was seen and evaluated by orthopedic surgery and has been fitted with a back brace - c/w analgesia with Tylenol / Tramadol - c/w PT / OT; PFS is looking into long-term placement Hypothyroidism - c/w Levothyroxine Atrial fibrillation - Patient is currently symptomatically - Will continue with rate control with metoprolol - Currently not on anticoagulation given his prior history of subdural hematomas HTN - c/w Lisinopril and Metoprolol DLP - c/w Atorvastatin Chronic diastolic congestive heart failure - Currently has no evidence of exacerbation - Echo with evidence of grade 1 diastolic dysfunction - c/w Furosemide DVT prophylaxis - c/w DENY / Sequentials (re: Hx of SDH) Disposition: - Awaiting placement - c/w ALC status VS,Fishbone, I+O VS, Fishbone, I+O Vital Signs Date Time Temp Pulse Resp B/P (MAP) Pulse Ox O2 Delivery O2 Flow Rate FiO2 09/05/19 09:22 82 131/71 09/05/19 06:00 98.4 17 98 I&O- Last 24 Hours up to 6 AM 09/05/19 06:00 Intake Total 870 ml Balance 870 ml KAYE HARRISON MD Sep 05, 2019 12:53
[2019-09-05] MEDS: traMADol 50 MG TAB PO PRN (20:20)
[2019-09-05] MEDS: ATORVASTATIN 20 MG TAB PO SCH (22:30)
[2019-09-05] MEDS: LUMIGAN EYE DROPS (PATIENT'S OWN MED) OU SCH (22:35)
[2019-09-06] MEDS: LEVOTHYROXINE 50MCG TABLET (0.05MG) PO SCH (05:55)
[2019-09-06 06:00] VITALS: BP 146/72
[2019-09-06] MEDS: DUTASTERIDE 0.5 MG CAP (AVODART) PO SCH (09:47)
[2019-09-06] MEDS: VITAMIN D 1,000 INTERNATIONAL UNITS TABLET PO SCH (09:47)
[2019-09-06] MEDS: FUROSEMIDE 40 MG TAB PO SCH (09:48)
[2019-09-06] MEDS: LISINOPRIL *2.5 MG* TAB PO SCH (09:48)
[2019-09-06] MEDS: METOPROLOL TARTRATE 100 MG TAB PO SCH ×2 (09:48→20:06)
[2019-09-06 10:13] LABS: HEMATOCRIT 39.1 % (42.0-52.0); HEMOGLOBIN 13.2 g/dl (13.5-17.5); MEAN CORPUSCULAR HEMOGLOBIN 30.1 pg (27.0-33.0); MEAN CORPUSCULAR HGB CONC 33.8 g/dl (32.0-36.5); MEAN CORPUSCULAR VOLUME 89.3 fl (80.0-96.0); PLATELET COUNT, AUTOMATED 175 10^3/uL (150-450); RED BLOOD COUNT 4.38 10^6/uL (4.30-6.10); WHITE BLOOD COUNT 5.5 10^3/uL (4.0-10.0)
[2019-09-06 10:40] LABS: BLOOD UREA NITROGEN 12 MG/DL (7-18); CALCIUM LEVEL 8.4 MG/DL (8.8-10.2); CARBON DIOXIDE LEVEL 30 MEQ/L (21-32); CHLORIDE LEVEL 101 MEQ/L (98-107); CREATININE FOR GFR 0.95 MG/DL (0.70-1.30); GLOMERULAR FILTRATION RATE > 60.0 (>35); GLUCOSE, FASTING 146 MG/DL (70-100); POTASSIUM SERUM 3.3 MEQ/L (3.5-5.1); SODIUM LEVEL 135 MEQ/L (136-145)
[2019-09-06] MEDS: ATORVASTATIN 20 MG TAB PO SCH (20:05)
[2019-09-06] MEDS: traMADol 50 MG TAB PO PRN (20:07)
[2019-09-06] MEDS: LUMIGAN EYE DROPS (PATIENT'S OWN MED) OU SCH (20:07)
[2019-09-07 06:00] VITALS: BP 152/73
[2019-09-07] MEDS: LEVOTHYROXINE 50MCG TABLET (0.05MG) PO SCH (06:16)
[2019-09-07] MEDS: VITAMIN D 1,000 INTERNATIONAL UNITS TABLET PO SCH (09:45)
[2019-09-07] MEDS: DUTASTERIDE 0.5 MG CAP (AVODART) PO SCH (09:45)
[2019-09-07] MEDS: FUROSEMIDE 40 MG TAB PO SCH (09:45)
[2019-09-07] MEDS: METOPROLOL TARTRATE 100 MG TAB PO SCH ×2 (09:47→22:30)
[2019-09-07] MEDS: LISINOPRIL *2.5 MG* TAB PO SCH (09:47)
[2019-09-07] MEDS: traMADol 50 MG TAB PO PRN (14:37)
[2019-09-07] MEDS: ATORVASTATIN 20 MG TAB PO SCH (22:29)
[2019-09-07] MEDS: LUMIGAN EYE DROPS (PATIENT'S OWN MED) OU SCH (22:30)
[2019-09-07] MEDS: ACETAMINOPHEN 650MG ER TAB (TYLENOL ARTHRITIS) PO PRN (22:30)
[2019-09-08] MEDS: LEVOTHYROXINE 50MCG TABLET (0.05MG) PO SCH (05:16)
[2019-09-08 05:40] VITALS: BP 127/83
[2019-09-08] MEDS: VITAMIN D 1,000 INTERNATIONAL UNITS TABLET PO SCH (10:00)
[2019-09-08] MEDS: DUTASTERIDE 0.5 MG CAP (AVODART) PO SCH (10:00)
[2019-09-08] MEDS: FUROSEMIDE 40 MG TAB PO SCH (10:00)
[2019-09-08] MEDS: LISINOPRIL *2.5 MG* TAB PO SCH (10:01)
[2019-09-08] MEDS: METOPROLOL TARTRATE 100 MG TAB PO SCH ×2 (10:01→20:40)
[2019-09-08 18:57] LABS: APPEARANCE, URINE CLEAR (CLEAR); BACTERIA, URINE AUTO NEGATIVE (NEGATIVE); BILIRUBIN, URINE AUTO NEGATIVE (NEGATIVE); BLOOD, URINE BLOOD NEGATIVE (NEGATIVE); COLOR, URINE YELLOW (YELLOW); GLUCOSE, URINE (UA) AUTO NEGATIVE (NEGATIVE); KETONE, URINE AUTO NEGATIVE (NEGATIVE); LEUKOCYTE ESTERASE, URINE AUTO TRACE (NEGATIVE); MUCUS, URINE SMALL (NEGATIVE); NITRITE, URINE AUTO NEGATIVE (NEGATIVE); PROTEIN, URINE AUTO NEGATIVE (NEGATIVE); RBC, URINE AUTO 1 /HPF (0-3); SPECIFIC GRAVITY URINE AUTO 1.011 (1.002-1.035); SQUAMOUS EPITHELIAL CELL UR AU 0 /HPF (0-6); UROBILINOGEN, URINE AUTO 0.2 mg/dL (0.0-2.0); WBC, URINE AUTO 3 /HPF (0-3)
[2019-09-08 20:38] VITALS: BP 166/89
[2019-09-08] MEDS: ATORVASTATIN 20 MG TAB PO SCH (20:39)
[2019-09-08] MEDS: LUMIGAN EYE DROPS (PATIENT'S OWN MED) OU SCH (20:40)
[2019-09-08] MEDS: traMADol 50 MG TAB PO PRN (21:54)
[2019-09-09] MEDS ORDERED: HALOPERIDOL 2 MG TAB PO ONE (01:45)
[2019-09-09] MEDS ORDERED: HALOPERIDOL 2 MG TAB PO PRN (02:00)
[2019-09-09] MEDS: LEVOTHYROXINE 50MCG TABLET (0.05MG) PO SCH (05:35)
[2019-09-09 06:00] VITALS: BP 159/83
[2019-09-09 08:35] VITALS: BP 96/59
[2019-09-09] MEDS: DUTASTERIDE 0.5 MG CAP (AVODART) PO SCH (08:36)
[2019-09-09] MEDS: VITAMIN D 1,000 INTERNATIONAL UNITS TABLET PO SCH (08:36)
[2019-09-09] MEDS: FUROSEMIDE 40 MG TAB PO SCH (12:40)
[2019-09-09] MEDS: METOPROLOL TARTRATE 100 MG TAB PO SCH ×2 (12:40→20:40)
[2019-09-09 12:41] VITALS: BP 125/68
[2019-09-09] MEDS: LISINOPRIL *2.5 MG* TAB PO SCH (12:41)
[2019-09-09] MEDS: traMADol 50 MG TAB PO PRN (13:13)
--- NOTE | 2019-09-09 16:55 | IPNPDOC ---
Date Seen The patient was seen on 09/09/19. Progress Note SUBJECTIVE: Patient was seen and examined this morning. Overnight the patient had been reported as being agitated and was felt to be a fall risk per nursing staff. The patient subsequently received Haldol 2mg. There were no further events reported overnight. This morning the patient is pleasant he states that he is tired. He denies any shortness of breath or fatigue OBJECTIVE PHYSICAL EXAMINATION: VITAL SIGNS: Please see below. GENERAL: Awake alert and oriented. Lying in bed comfortably. Appears in no acute distress. He is pleasant HEENT: Atraumatic normocephalic. Eyes are nonicteric. Trachea is midline. CARDIOVASCULAR: Normal S1, S2. Irregularly irregular rhythm. Regular rate. No clicks rubs or murmurs RESPIRATORY: Clear vesicular breath sounds bilaterally with good respiratory effort. No wheezes, rhonchi, or rales ABDOMINAL: Soft, nondistended. Nontender to palpation in all 4 quadrants. No rebound tenderness or guarding EXTREMITIES: No edema. Full and equal pulses in bilateral upper and lower extremities NEUROLOGICAL: No focal neurological deficits PSYCHOLOGICAL: Mood and affect appear appropriate LABORATORY DATA, IMAGING STUDIES, MICROBIOLOGY: Please see below. DVT prophylaxis ordered?: Mechanical DVT Prophylaxis ASSESSMENT AND PLAN: Patient is an 84-year-old male with past medical history significant for atrial fibrillation, chronic hypertension, dyslipidemia, chronic subdural hematoma, dementia, hypothyroidism, benign prostatic hypertrophy. Esophageal reflux disease who is admitted for fall resulting in vertebral fra ctures. Patient received a CAT scan which demonstrated acute compression fracture L4, mild to moderate spinal canal stenosis. The family indicated they only wanted conservative approach with orthopedic surgery has been consulted with recommendations. Patient has been fitted with a brace and currently pending placement. Patient remains DNR/DNI. He has been reported to be agitated at night. Patient was given Halodol overnight. He has been scheduled for Risperdal at night. PROBLEMS: 1 Fall secondary to weakness resulting in vertebral fractures -Patient is fitted with a back brace. Currently awaiting placement -Continue pain medications. -Patient continues to work with physical therapy 2. Dementia -Patient has a history of dementia. He likely has sundowning at night. A urinalysis was ordered to assess for possible delerium. This was negative. Additionally the patient symptoms are transient. His nighttime agitation is likely secondary to his dementia -Given patients fall risk will start on low dose Risperdal. -Patient received Halodol previously. Additional doses should be avoided given the risk in the elderly. If patient becomes agitated frequent reorientation should be employed before additional chemical restraints are used 3. Hypothyroidism -Will continue home medications 4. Atrial fibrillation -Patient is currently rate controlled. -He is not on any anticoagulation as he has a history of subdural hematomas. 5 . Chronic diastolic congestive heart failure -Grade 1 diastolic dysfunction. -Currently stable -Patient currently receives Lasix by mouth metoprolol. And losartan DISPOSITION: -He is currently awaiting placement. -He is ALC status. I saw and evaluated the patient. I agree with the findings and plan of care as documented in the above note VS, I&O, 24H, Fishbone Vital Signs/I&O Vital Signs Date Time Temp Pulse Resp B/P (MAP) Pulse Ox O2 Delivery O2 Flow Rate FiO2 09/09/19 13:45 18 Room Air 09/09/19 12:41 80 125/68 (87) 09/09/19 06:00 97.9 97 I&O- Last 24 Hours up to 6 AM 09/09/19 06:00 Intake Total 800 ml Output Total 700 ml Balance 100 ml Laboratory Data 24H LABS Laboratory Tests 2 09/08/19 18:37: Urine Color YELLOW, Urine Appearance CLEAR, Urine pH 6.0, Urine Specific [place] 1.011, Urine Protein NEGATIVE, Urine Glucose (Auto)(UA) NEGATIVE, Urine Ketones (Auto) NEGATIVE, Urine Blood NEGATIVE, Urine Nitrite NEGATIVE, Urine Bilirubin NEGATIVE, Urine Urobilinogen 0.2, Urine Leukocyte Esterase (Auto) TRACEH, Urine WBC (Auto) 3, Urine RBC (Auto) 1, Urine Hyaline Casts (Auto) 2, Urine Bacteria (Auto) NEGATIVE, Urine Squamous Epithelial Cells 0, Urine Mucus (Auto) SMALL, Urine Sperm (Auto) LEELA PATIÑO DO Sep 09, 2019 16:55 ARABELLA ORTEGA MD Sep 10, 2019 14:47
[2019-09-09 20:38] VITALS: BP 122/66
[2019-09-09] MEDS: risperiDONE 0.5 MG TAB PO SCH (20:39)
[2019-09-09] MEDS: LUMIGAN EYE DROPS (PATIENT'S OWN MED) OU SCH (20:40)
[2019-09-09] MEDS: ATORVASTATIN 20 MG TAB PO SCH (20:40)
[2019-09-09] MEDS: ACETAMINOPHEN 650MG ER TAB (TYLENOL ARTHRITIS) PO PRN (23:33)
[2019-09-10] MEDS: LEVOTHYROXINE 50MCG TABLET (0.05MG) PO SCH (05:49)
[2019-09-10 05:53] VITALS: BP 125/65
[2019-09-10] MEDS: FUROSEMIDE 40 MG TAB PO SCH (08:13)
[2019-09-10] MEDS: METOPROLOL TARTRATE 100 MG TAB PO SCH ×2 (08:13→21:13)
[2019-09-10] MEDS: LISINOPRIL *2.5 MG* TAB PO SCH (08:13)
[2019-09-10] MEDS: VITAMIN D 1,000 INTERNATIONAL UNITS TABLET PO SCH (08:14)
[2019-09-10] MEDS: traMADol 50 MG TAB PO PRN (08:14)
[2019-09-10] MEDS: DUTASTERIDE 0.5 MG CAP (AVODART) PO SCH (08:14)
[2019-09-10] MEDS: ACETAMINOPHEN 650MG ER TAB (TYLENOL ARTHRITIS) PO PRN (19:24)
[2019-09-10] MEDS: risperiDONE 0.5 MG TAB PO SCH (20:09)
[2019-09-10] MEDS: ATORVASTATIN 20 MG TAB PO SCH (20:09)
[2019-09-10] MEDS: LUMIGAN EYE DROPS (PATIENT'S OWN MED) OU SCH (21:13)
[2019-09-11] MEDS: traMADol 50 MG TAB PO PRN ×3 (02:40→23:10)
[2019-09-11] MEDS: LEVOTHYROXINE 50MCG TABLET (0.05MG) PO SCH (05:45)
[2019-09-11 08:02] VITALS: BP 144/91
[2019-09-11] MEDS: LISINOPRIL *2.5 MG* TAB PO SCH (09:11)
[2019-09-11] MEDS: FUROSEMIDE 40 MG TAB PO SCH (09:11)
[2019-09-11] MEDS: DUTASTERIDE 0.5 MG CAP (AVODART) PO SCH (09:11)
[2019-09-11] MEDS: VITAMIN D 1,000 INTERNATIONAL UNITS TABLET PO SCH (09:11)
[2019-09-11] MEDS: METOPROLOL TARTRATE 100 MG TAB PO SCH ×2 (09:12→23:09)
[2019-09-11] MEDS ORDERED: CHOL100029 PO (17:32)
[2019-09-11] MEDS ORDERED: RISP0.5T21 PO (17:32)
[2019-09-11] MEDS ORDERED: TRAM50TA2 PO (17:32)
[2019-09-11] MEDS: risperiDONE 0.5 MG TAB PO SCH (23:09)
[2019-09-11] MEDS: ATORVASTATIN 20 MG TAB PO SCH (23:09)
[2019-09-11] MEDS: LUMIGAN EYE DROPS (PATIENT'S OWN MED) OU SCH (23:10)
[2019-09-12 06:00] VITALS: BP 139/81
[2019-09-12] MEDS: LEVOTHYROXINE 50MCG TABLET (0.05MG) PO SCH (06:59)
[2019-09-12 07:34] VITALS: BP 139/81
[2019-09-12] MEDS: METOPROLOL TARTRATE 100 MG TAB PO SCH (07:34)
[2019-09-12] MEDS: VITAMIN D 1,000 INTERNATIONAL UNITS TABLET PO SCH (07:34)
[2019-09-12] MEDS: risperiDONE 0.5 MG TAB PO SCH (07:35)
[2019-09-12] MEDS: LISINOPRIL *2.5 MG* TAB PO SCH (07:35)
[2019-09-12] MEDS: FUROSEMIDE 40 MG TAB PO SCH (07:35)
[2019-09-12] MEDS: DUTASTERIDE 0.5 MG CAP (AVODART) PO SCH (07:35)
--- NOTE | 2019-09-12 13:53 | DS.PDOC ---
Discharge Summary General Date of Admission Aug 16, 2019 at 00:58 Date of Discharge September 12, 2019 Primary Care Physician: A Attending Physician: NITHYA STAHL MD Specialist/Consultants Involve: DEMI NAVARRO MD Discharge Summary PROCEDURES PERFORMED DURING STAY: [None]. ADMITTING DIAGNOSES: 1. Atrial fibrillation with RVR. 2. History of fall with weakness resulting in for her to go fracture. 3. Osteoporosis. 4. Possible UTI. 5. Chronic hypertension. 6. History of grade 1 chronic diastolic congestive heart failure 7. Hypothyroidism DISCHARGE DIAGNOSES: 1. L1-L4 compression fractures 2. Dementia 3. AF 4. Chronic dCHF 5. Hypothyroidism 6. Osteoporosis COMPLICATIONS/CHIEF COMPLAINT: Compression Fx Of L4 Vertebra. HISTORY OF PRESENT ILLNESS: "This is an 84 yr old M is a poor historian; per d/w the ED provider his PCP sent him for evaluation bc of weakness, difficulties walking, and right hip pain. 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 Today repeat imaging studies were remarkable for L1, L3, L4 compression fx w mild canal stenosis. The ED provided talked with Ortho real estate operations manager who recommended admission for pain management." HOSPITAL COURSE: Mr. Savage was admitted from his PCP office because of weakness, difficulties walking and right hip pain. He had recently fallen prior to admission. Repeat imaging demonstrated L1, L3, L4 compression fracture with mild canal stenosis. He was also found to have atrial fibrillation with rapid ventricular response. Orthopedic surgery was consultation for his pain management and the patient was fitted with a thoracic lumbar sacral orthosis (TLSO) brace. The patient's family, given his history of severe dementia, desire d only conservative treatment for his compression fractures. The patient had some behavioral issues during his stay at the hospital for which she was treated with risperidone. Medically, he remained stable otherwise. He was discharged to long-term care facility. DISCHARGE MEDICATIONS: Please see below. ALLERGIES: Please see below. PHYSICAL EXAMINATION ON DISCHARGE: VITAL SIGNS: Please see below. GENERAL: Awake alert and oriented. Lying in bed comfortably. Appears in no acute distress. He is pleasant HEENT: Atraumatic normocephalic. Eyes are nonicteric. Trachea is midline. CARDIOVASCULAR: Normal S1, S2. Irregularly irregular rhythm. Regular rate. No clicks rubs or murmurs RESPIRATORY: Clear vesicular breath sounds bilaterally with good respiratory effort. No wheezes, rhonchi, or rales ABDOMINAL: Soft, nondistended. Nontender to palpation in all 4 quadrants. No rebound tenderness or guarding EXTREMITIES: No edema. Full and equal pulses in bilateral upper and lower extremities NEUROLOGICAL: No focal neurological deficits PSYCHOLOGICAL: Mood and affect appear appropriate LABORATORY DATA: Please see below. IMAGING: PELVIS XR: No pelvic fracture. L4 compression fracture. CT HEAD: 1. No evidence of bleed. 2. No evidence of fracture. 3. Chronic ischemic changes. 4. Prominence of the ventricles and cerebral sulci which could be secondary to moderate atrophy or communicating type hydrocephalus. There's been an increase in size of ventricles since the [address] CHEST: Small pleural effusion with right base atelectasis. Small to moderate left pleural effusion with areas of atelectasis and scarring in left lower lobe and upper lobe, not significantly changed from prior study. No acute findings. CT SPINE: 1. There is sclerosis and facet hypertrophy bilaterally. 2. No evidence of fracture. CT ABD/PELVIS: Trace fluid adjacent to the inferior margin of the liver. No obvious liver contusions are seen. Mild fluid surrounding the first part of the duodenum of uncertain etiology may represent duodenitis versus duodenal contusion, followup as clinically indicated. Acute compression fracture of L4 with 40% loss of height and 3 mm retropulsion of superior endplate causing moderate central spinal canal stenosis. Mild compression fracture of superior endplate of L1 and L3 without any retropulsion. Prostate is enlarged measuring up to 7.0 x 6.7 cm causing mass effect on the bladder base. PROGNOSIS: fair ACTIVITY: [As tolerated]. DIET: as tolerated DISCHARGE PLAN: long-term care facility DISPOSITION: [facility]. DISCHARGE INSTRUCTIONS: 1. Follow up with PCP and Orthopedics within 1-2 weeks after discharge 2. Return to the ER if you experience any problems ITEMS TO FOLLOWUP ON ON OUTPATIENT: 1. none DISCHARGE CONDITION: [Stable]. TIME SPENT ON DISCHARGE: Greater than 40 minutes. Vital Signs/I&Os Vital Signs Date Time Temp Pulse Resp B/P (MAP) Pulse Ox O2 Delivery O2 Flow Rate FiO2 09/12/19 07:34 73 139/81 09/12/19 06:00 98.6 17 98 Room Air I&O- Last 24 Hours up to 6 AM 09/12/19 06:00 Intake Total 356 ml Output Total 550 ml Balance -194 ml Discharge Medications Scheduled Acetaminophen/Diphenhydramine (Acetaminophen Pm Caplet) 1 Each Tablet, 1 TAB PO QHS, (Reported) Atorvastatin Calcium (Lipitor) 20 Mg Tab, 20 MG PO QHS, (Reported) Bimatoprost (Lumigan) 50 Drop/2.5 Ml Jasmina, 1 DROP OU QHS, (Reported) Dutasteride (Avodart) 0.5 Mg Cap, 0.5 MG PO DAILY, (Reported) Furosemide (Lasix) 40 Mg Tab, 40 MG PO DAILY, (Reported) Levothyroxine Sodium (Synthroid) 50 Mcg Tab, 50 MCG PO DAILY, (Reported) Lisinopril (Lisinopril) 2.5 Mg Tablet, 2.5 MG PO DAILY, (Reported) Metoprolol Tartrate (Metoprolol Tartrate) 100 Mg Tab, 100 MG PO BID, (Reported) Risperidone (Risperdal) 0.5 Mg Tablet, 0.5 MG PO BID Vitamin D (Vitamin D3) 1,000 Unit Tablet, 1,000 UNITS PO DAILY Allergies Coded Allergies: No Known Allergies (Unverified , 07/24/18) GME ATTESTATION GME ATTESTATION My faculty preceptor for this patient encounter was physically present during the encounter and was fully available. All aspects of the patient interview, e xamination, medical decision making process, and medical care plan development were reviewed and approved by the faculty preceptor. The faculty preceptor is aware and concurs with the plan as stated in the body of this note and will attest to such by his/her cosignature. ATTENDING NOTE I, Nithya Stahl, have independently examined this patient and performed my own physical exam, as well as reviewed the documentation and edited where necessary. I have discussed in detail with the resident / student the findings and plan of treatment as documented by the resident / student and edited their note. I agre e with their findings and treatment plan and have edited their documentation. I will continue to follow the patient during this hospital stay. Time spent on discharge 36 minutes MICHELLE VALE MD Sep 12, 2019 13:53 NITHYA STAHL MD Sep 12, 2019 15:01
== END 2019-09-12 08:25 | DRG 309 ==
LOC: M ED 17:23 → M ED INP 17:24 → OBSVTOIN 08-16 00:58 → M ICU 08-16 03:49 → M MSPAV 08-17 12:02
PROVIDERS: ADMIT Internal Medicine; ATTEND Internal Medicine
DX: I48.91 Unspecified atrial fibrillation (principal); I50.32 Chronic diastolic (congestive) heart failure; S32.048A Other fracture of fourth lumbar vertebra, initial encounter for closed fracture; S32.018A Other fracture of first lumbar vertebra, initial encounter for closed fracture; S32.038A Other fracture of third lumbar vertebra, initial encounter for closed fracture; R53.1 Weakness; I11.0 Hypertensive heart disease with heart failure; E78.5 Hyperlipidemia, unspecified; F03.90 Unspecified dementia, unspecified severity, without behavioral disturbance, psychotic disturbance, mood disturbance, and anxiety; E03.9 Hypothyroidism, unspecified; N40.0 Benign prostatic hyperplasia without lower urinary tract symptoms; K21.9 Gastro-esophageal reflux disease without esophagitis; Z87.891 Personal history of nicotine dependence; W19.XXXA Unspecified fall, initial encounter; Y92.9 Unspecified place or not applicable; R26.2 Difficulty in walking, not elsewhere classified; M81.0 Age-related osteoporosis without current pathological fracture; M48.061 Spinal stenosis, lumbar region without neurogenic claudication; Z66 Do not resuscitate; Z79.899 Other long term (current) drug therapy